=== PATIENT | female | born 1970 | race Caucasian/White ===

== ENCOUNTER 2016-11-28 16:39 | Emergency (ER) | payer OTHER ==
[2016-11-28 16:50] VITALS: RESP 17
[2016-11-28 17:49] LABS: Anion Gap 11 mmol/L; Blood Urea Nitrogen 16 mg/dL (7-17); Carbon Dioxide 22 mmol/L (22-30); Chloride 108 mmol/L (98-107); Glucose 94 mg/dL (74-99); Non-African American GFR(MDRD) >60 (>60 ml/min/1.73 sqM); Potassium 4.1 mmol/L (3.5-5.1); Sodium 141 mmol/L (137-145)
[2016-11-28 17:51] LABS: Anisocytosis Slight; Basophils % (A) 1 %; CH 18.2; CHCM 27.7; Eosinophils # (A) 0.1 k/uL (0-0.7); Eosinophils % (A) 2 %; HDW 3.97; Hypochromasia Marked; Luc # (Auto) 0.13; Luc % (Auto) 3; Lymphocytes % (A) 24 %; MCHC 27.1 g/dL (31.0-37.0); MCV 66.3 fL (80.0-100.0); Mean Platelet Volume 8.3; Microcytosis Marked; Monocytes # (A) 0.3 k/uL (0-1.0); Monocytes % (A) 7 %; Neutrophils # (A) 2.7 k/uL (1.3-7.7); Neutrophils % (A) 63 %; Poikilocytosis Slight; RBC 3.77 m/uL (3.80-5.40); RDW 18.5 % (11.5-15.5); WBC 4.3 k/uL (3.8-10.6); WBC (Perox) 4.57
[2016-11-28 17:55] LABS: HGB 6.8 gm/dL (11.4-16.0)
--- NOTE | 2016-11-28 18:23 | ED ---
General Adult HPI - General Chief complaint: Recheck/Abnormal Lab/Rx Stated complaint: Low Hemoglobin Time Seen by Provider: 11/28/16 16:54 Source: patient Mode of arrival: ambulatory Limitations: no limitations - History of Present Illness Initial comments: Patient presents with a chief complaint of abnormally low hemoglobin. She was seen by her primary care doctor today for her routine physical. She had blood work drawn and initially had a hemoglobin of 7.1. She was contacted by her primary care doctor to have her labs redrawn. The second hemoglobin resulted at 6.7, she was then instructed to present to the emergency department. On arrival, patient's vital signs are stable. Patient states that she is not having any symptoms including lightheadedness, dizziness, exertional dyspnea. Patient admits that she has had very heavy periods her entire life. She has no history of uterine fibroids. Patient states that her periods have always been very consistent, however lately they have been getting closer together. Patient denies any other complaints at this time. - Related Data Home Medications Medication Instructions Recorded Confirmed Ascorbic Acid [Vitamin C] 500 mg PO BID 11/28/16 11/28/16 Aspirin [Adult Low Dose Aspirin EC] 81 mg PO DAILY 11/28/16 11/28/16 Biotin 5 mg PO BID 11/28/16 11/28/16 Flaxseed Oil [[place]-3 Flaxseed Oil] 1,000 mg PO BID 11/28/16 11/28/16 Garlic 1 tab PO BID 11/28/16 11/28/16 Krill Oil 500 mg PO BID 11/28/16 11/28/16 L.acidoph,Paracasei, B.lactis 1 cap PO BID 11/28/16 11/28/16 [Probiotic] Magnesium 200 mg PO BID 11/28/16 11/28/16 Milk Thistle 150 mg PO DAILY 11/28/16 11/28/16 Multivitamins, Thera [Multivitamin 1 tab PO DAILY 11/28/16 11/28/16 (formulary)] valACYclovir HCL [Valtrex] 1,000 mg PO DAILY PRN 11/28/16 11/28/16 Previous Rx's Medication Instructions Recorded Norethindrone-E.estradiol-Iron 1 each PO DAILY #1 pack 11/28/16 [Junel Fe 1 mg-20 Mcg Tablet] Allergies Allergy/AdvReac Type Severity Reaction Status Date / Time Penicillins Allergy Swelling Verified 11/28/16 17:22 Review of Systems ROS Statement: Those systems with pertinent positive or pertinent negative responses have been documented in the HPI. ROS Other: All systems not noted in ROS Statement are negative. Constitutional: Denies: fever, chills Eyes: Denies: vision change ENT: Denies: ear pain, throat pain Respiratory: Denies: cough, dyspnea Cardiovascular: Denies: chest pain, palpitations, dyspnea on exertion, edema Endocrine: Reports: fatigue Gastrointestinal: Denies: abdominal pain, nausea, vomiting Genitourinary: Denies: dysuria Musculoskeletal: Denies: back pain Skin: Denies: rash, lesions Neurological: Denies: headache, weakness, numbness, paresthesias Psychiatric: Denies: depression Hematological/Lymphatic: Reports: other (Heavy Menstrual Periods) Past Medical History Additional Past Medical History / Comment(s): heavy periods, cold sores History of Any Multi-Drug Resistant Organisms: None Reported Past Psychological History: No Psychological Hx Reported Smoking Status: Never smoker Past Alcohol Use History: None Reported Past Drug Use History: None Reported General Exam Limitations: no limitations General appearance: alert, in no apparent distress Head exam: Present: atraumatic, normocephalic Eye exam: Present: normal appearance, PERRL ENT exam: Present: normal exam. Absent: mucous membranes dry Neck exam: Present: normal inspection Respiratory exam: Present: normal lung sounds bilaterally. Absent: respiratory distress, wheezes Cardiovascular Exam: Present: regular rate, normal rhythm, normal heart sounds. Absent: tachycardia, irregular rhythm GI/Abdominal exam: Present: soft. Absent: distended, tenderness Rectal exam: Present: deferred External exam: Present: other (Patient deferred pelvic exam. Patient states she is not bleeding currently.) Extremities exam: Present: normal inspection Back exam: Present: normal inspection Neurological exam: Present: alert, oriented X3, normal gait Psychiatric exam: Present: normal affect, normal mood Skin exam: Present: warm, dry, intact, pallor. Absent: rash Course Vital Signs 11/28/16 11/28/16 16:48 18:45 Temperature 99.9 F H 98.7 F Pulse Rate 87 88 Respiratory 17 Rate Blood Pressure 120/74 108/58 O2 Sat by Pulse 100 99 Oximetry Medical Decision Making - Medical Decision Making Patient presents at the request of her primary care physician for hemoglobin of 6.7. On initial evaluation, patient's vital signs are stable, she is in no acute distress. I discussed redrawing labs with the patient, she is agreeable. At this time she is declining a rectal or pelvic exam. Patient states that she is not having any chest pain, shortness of breath, exertional dyspnea, lightheadedness or dizziness. Patient further states that she is very active, and walks 3-4 miles per day with her dogs and alternates weights and yoga. She has not had any difficulty performing his activities. EKG performed at 1730 shows normal sinus rhythm with a rate of 82 bpm. Segments appear to be within normal limits, EKG is otherwise nonspecific. Lab evaluation of this patient shows a hemoglobin of 6.8, differential is consistent with chronic blood loss anemia. Electrolytes and renal function are within normal limits. I discussed this case with Dr. Ceja, who is a partner of Dr. Davis's. Dr. Fernandez states that the patient should call the office to try to expedite her appointment with Dr. Davis is Dr. Davis is out of town currently. I discussed starting control on this patient, Dr. Ceja agreeable to starting 05/10 adding the patient follow-up in the office with Dr. Davis. I discussed blood transfusion with the patient, the patient does not want to have a blood transfusion. I discussed the risks and benefits with her, patient still declining at this time. Patient appears stable, she is asymptomatic. Patient will be started on control, and instructed to follow up with primary care and [employer] ATTEND[employer]. She was given explicit instructions on signs and symptoms that should prompt return visit to the emergency department. 6:54 PM Case was discussed with the patient's primary care doctor. He is aware that the patient does not want to stay for a blood transfusion. At this time, patient is asymptomatic. Case was discussed with primary care, and [employer] ATTENDANT. Care plan includes starting the patient on 05/10, and increasing her iron supplementation to 3 times a day. All parties are agreeable with this care plan. Again patient states she is clear on signs and symptoms to return to the emergency department. - Lab Data Result diagrams: 11/28/16 17:25 11/28/16 17:25 Lab Results 11/28/16 11/28/16 Range/Units 17:25 17:25 WBC 4.3 (3.8-10.6) k/uL RBC 3.77 L (3.80-5.40) m/uL Hgb 6.8 L* (11.4-16.0) gm/dL Hct 25.0 L (34.0-46.0) % MCV 66.3 L (80.0-100.0) fL MCH 18.0 L (25.0-35.0) pg MCHC 27.1 L (31.0-37.0) g/dL RDW 18.5 H (11.5-15.5) % Plt Count 268 (150-450) k/uL Neutrophils % 63 % Lymphocytes % 24 % Monocytes % 7 % Eosinophils % 2 % Basophils % 1 % Neutrophils # 2.7 (1.3-7.7) k/uL Lymphocytes # 1.0 (1.0-4.8) k/uL Monocytes # 0.3 (0-1.0) k/uL Eosinophils # 0.1 (0-0.7) k/uL Basophils # 0.0 (0-0.2) k/uL Hypochromasia Marked Poikilocytosis Slight Anisocytosis Slight Microcytosis Marked Sodium 141 (137-145) mmol/L Potassium 4.1 (3.5-5.1) mmol/L Chloride 108 H (98-107) mmol/L Carbon Dioxide 22 (22-30) mmol/L Anion Gap 11 mmol/L BUN 16 (7-17) mg/dL Creatinine 0.68 (0.52-1.04) mg/dL Est GFR (MDRD) Af Amer >60 (>60 ml/min/1.73 sqM) Est GFR (MDRD) Non-Af >60 (>60 ml/min/1.73 sqM) Glucose 94 (74-99) mg/dL Calcium 9.0 (8.4-10.2) mg/dL Disposition Clinical Impression: Anemia, Menorrhagia Disposition: HOME SELF-CARE Condition: Fair Instructions: Anemia (ED), Menorrhagia (ED) Prescriptions: Norethindrone-E.estradiol-Iron [Junel Fe 1 mg-20 Mcg Tablet] 1 each PO DAILY #1 pack Referrals: Michael Worley MD [Primary Care Provider] - 1-2 days Ryan,Faby, DO [Doctor of Osteopathic Medicine] - 1-2 days
[2016-11-28 18:46] VITALS: BP 108/58; PULSE 88; TEMP 98.7
== END 2016-11-28 19:07 | disposition home or self-care (01) ==
LOC: EC 16:39
DX: D64.9 Anemia, unspecified (principal); N92.0 Excessive and frequent menstruation with regular cycle; Z79.82 Long term (current) use of aspirin; Z79.899 Other long term (current) drug therapy; Z88.0 Allergy status to penicillin
CPT/HCPCS: 36415; 80048; 85025; 93005; 99284

== ENCOUNTER → 2017-01-08 | Outpatient (CLI) | payer OTHER ==
--- NOTE | 2017-01-08 10:54 | US ---
EXAMINATION TYPE: US pelvic complete DATE OF EXAM: 01/08/2017 COMPARISON: NONE CLINICAL HISTORY: D25.9 Fibroid cysts. History of uterine fibroids, heavy cycles, 0 TECHNIQUE: Transabdominal (TA): patient refused transvaginal exam, stated she has had a transvaginal exam before and it was very uncomfortable and she did not want to have it done today. Date of LMP: 12/03/16 EXAM MEASUREMENTS: Uterus: 13.6 x 10.4 x 10.1 cm Endometrial Stripe: 1.8 cm Right Ovary: not seen Left Ovary: 3.1 x 2.3 x 2.5 cm 1. Uterus: enlarged at 13.6cm, bulky, heterogeneous with multiple hypoechoic areas with largest amanda uring 5.8cm, probable fibroids 2. Endometrium: thickened at 1.8cm, 2.5cm hyperechoic complex area within upper portion of endo with minimal vascularity, possible collection of blood/fluid vs. polyp vs. other 3. Right Ovary: not seen due to overlying peristalsing loops of bowel 4. Left Ovary: wnl 5. Bilateral Adnexa: wnl 6. Posterior cul-de-sac: wnl Endometrium is distorted and thus suboptimally evaluated, vague hyperechoic shadowing area of uncerta in etiology, consider dystrophic calcification. IMPRESSION: Enlarged fibroid uterus is confirmed. Suboptimal evaluation of endometrium due to underly ing prominent fibroids.
== END | disposition home or self-care (01) ==
LOC: RADUSWWP 09:48
PROVIDERS: ATTEND Obstetrics & Gynecology
DX: D25.9 Leiomyoma of uterus, unspecified (principal); N85.2 Hypertrophy of uterus
CPT/HCPCS: 76856

== ENCOUNTER 2019-06-22 16:59 | Emergency (ER) | payer OTHER ==
[2019-06-22 17:07] VITALS: RESP 16
[2019-06-22] MEDS ORDERED: RABIES VACCINE (PCEC) 2.5 UNIT KIT IM ONE (18:00)
[2019-06-22] MEDS ORDERED: RABIES IMMUNE GLOB 300 UNIT/ML 1 ML VIAL IM ONE (18:00)
[2019-06-22] MEDS ORDERED: LIDOCAINE 1% INJ 10MG/ML (20 ML MDV) SQ ONE (18:00)
--- NOTE | 2019-06-22 18:25 | XR ---
EXAMINATION TYPE: XR finger LT DATE OF EXAM: 06/22/2019 COMPARISON: NONE HISTORY: Pain. Cat bite. TECHNIQUE: 3 views FINDINGS: I see no fracture nor dislocation. Joint spaces are normal. There is no sign of a foreign b michael. IMPRESSION: Negative left middle finger exam.
[2019-06-22] MEDS ORDERED: DOXYCYCLINE 100 MG CAP PO STA (19:13)
--- NOTE | 2019-06-22 19:14 | ED ---
General Adult HPI - General Chief complaint: Animal Bite Stated complaint: Bit by cat Time Seen by Provider: 06/22/19 17:16 Source: patient, RN notes reviewed Mode of arrival: ambulatory Limitations: no limitations - History of Present Illness Initial comments: 48-year-old female presents to the emergency department for a chief complaint of cat bite. Patient was bitten by a stray cat earlier today. States the cat got into her backyard and her dogs were going to attack it if she left them out. Therefore she picked up the cat and it unfortunately bit her on the middle finger. She threw the cat over the fence. Patient states tetanus is up-to-date in the past few years.Patient has no other complaints at this time including shortness of breath, chest pain, abdominal pain, nausea or vomiting, headache, or visual changes. - Related Data Home Medications Medication Instructions Recorded Confirmed Ascorbic Acid [Vitamin C] 500 mg PO BID 11/28/16 11/28/16 Aspirin [Adult Low Dose Aspirin EC] 81 mg PO DAILY 11/28/16 11/28/16 Biotin 5 mg PO BID 11/28/16 11/28/16 Flaxseed Oil [[place]-3 Flaxseed Oil] 1,000 mg PO BID 11/28/16 11/28/16 Garlic 1 tab PO BID 11/28/16 11/28/16 Krill Oil 500 mg PO BID 11/28/16 11/28/16 L.acidoph,Paracasei, B.lactis 1 cap PO BID 11/28/16 11/28/16 [Probiotic] Magnesium 200 mg PO BID 11/28/16 11/28/16 Milk Thistle 150 mg PO DAILY 11/28/16 11/28/16 Multivitamins, Thera [Multivitamin 1 tab PO DAILY 11/28/16 11/28/16 (formulary)] valACYclovir HCL [Valtrex] 1,000 mg PO DAILY PRN 11/28/16 11/28/16 Previous Rx's Medication Instructions Recorded Norethindrone-E.estradiol-Iron 1 each PO DAILY #1 pack 11/28/16 [Junel Fe 1 mg-20 Mcg Tablet] Doxycycline [Vibramycin] 100 mg PO BID 14 Days #28 capsule 06/22/19 Allergies Allergy/AdvReac Type Severity Reaction Status Date / Time Penicillins Allergy Swelling Verified 06/22/19 17:07 Review of Systems ROS Statement: Those systems with pertinent positive or pertinent negative responses have been documented in the HPI. ROS Other: All systems not noted in ROS Statement are negative. Past Medical History Additional Past Medical History / Comment(s): heavy periods, cold sores History of Any Multi-Drug Resistant Organisms: None Reported Past Surgical History: No Surgical Hx Reported Past Psychological History: No Psychological Hx Reported Smoking Status: Never smoker Past Alcohol Use History: None Reported Past Drug Use History: None Reported General Exam Limitations: no limitations General appearance: alert, in no apparent distress Head exam: Present: atraumatic, normocephalic, normal inspection Eye exam: Present: normal appearance, PERRL, EOMI. Absent: scleral icterus, conjunctival injection, periorbital swelling ENT exam: Present: normal exam, mucous membranes moist Neck exam: Present: normal inspection. Absent: tenderness, meningismus, lymphadenopathy Respiratory exam: Present: normal lung sounds bilaterally. Absent: respiratory distress, wheezes, rales, rhonchi, stridor Cardiovascular Exam: Present: regular rate, normal rhythm, normal heart sounds. Absent: systolic murmur, diastolic murmur, rubs, gallop, clicks Extremities exam: Present: other (Patient has a small puncture wound noted to the left third digit finger pad. There is no spreading or streaking redness. No drainage. No evidence of infection at this time.) Course Vital Signs 06/22/19 06/22/19 17:03 21:45 Temperature 98.1 F 97.9 F Pulse Rate 77 82 Respiratory 16 16 Rate Blood Pressure 104/67 115/68 O2 Sat by Pulse 100 98 Oximetry Medical Decision Making - Medical Decision Making Wound is superficial. Wound was cleaned thoroughly with sterile water. X-ray of the left middle finger is negative. No sign of foreign body. Patient is already up-to-date on tetanus. Patient was started on doxycycline and given penicillin ALLERGY. Given cat was likely a stray cat patient was immunized for rabies. I discussed appropriate follow-up to continue rabies immunization and wrote prescription. I discussed high risk of infection and to return if she notices any of these symptoms.I discussed this case with attending Dr. Peterson who agrees with this assessment and treatment plan. Disposition Clinical Impression: Cat bite Disposition: HOME SELF-CARE Condition: Good Instructions (If sedation given, give patient instructions): Animal Bite (ED) Additional Instructions: Please take antibiotic as directed. This was prescribed to Renuka Laresn. Follow rabies vaccination schedule. Return to the hospital to have these immunizations on June 24, , , and . Please follow-up with primary care in 1-2 days. If you notice any signs of infection like spreading redness streaking redness purulent drainage or fevers return immediately to the emergency department. Prescriptions: Doxycycline [Vibramycin] 100 mg PO BID 14 Days #28 capsule Is patient prescribed a controlled substance at d/c from ED?: No Referrals: Michael Worley MD [Primary Care Provider] - 1-2 days Time of Disposition: 19:13
[2019-06-22 21:46] VITALS: BP 115/68; PULSE 82; TEMP 97.9
== END 2019-06-22 19:35 | disposition home or self-care (01) ==
LOC: EC 16:59
DX: S60.473A Other superficial bite of left middle finger, initial encounter (principal); Z88.0 Allergy status to penicillin; Z79.82 Long term (current) use of aspirin; Z20.3 Contact with and (suspected) exposure to rabies; Z23 Encounter for immunization; Z29.14 Encounter for prophylactic rabies immune globulin; W55.01XA Bitten by cat, initial encounter; Y93.89 Activity, other specified; Y92.017 Garden or yard in single-family (private) house as the place of occurrence of the external cause; Z53.8 Procedure and treatment not carried out for other reasons
CPT/HCPCS: 90375; 90471; 90675; 96372; 99283

== ENCOUNTER → 2021-08-17 | Outpatient (CLI) | payer OTHER ==
--- NOTE | 2021-08-17 12:07 | MM ---
Reason for exam: clinical finding. Baseline mammogram. History: Patient is nulliparous. Indicated problem(s): palpable abnormality in the left breast. Physical Findings: A clinical breast exam by your physician is recommended on an annual basis and results should be correlated with mammographic findings. MG 3D Diag Mammo W/Cad JULIANNE Bilateral CC and MLO view(s) were taken. LM and spot compression CC view(s) were taken of the left breast. The breast tissue is extremely dense which could obscure a lesion on mammography. Finding: There are 35 mm spiculated irregular masses located 3-4 cm from the nipple in the middle position of both breasts with suspicious calcifications. There is no discrete abnormality in the right breast. Results were given to the patient verbally at the time of the exam. ASSESSMENT: Incomplete: need additional imaging evaluation, BI-RAD 0 RECOMMENDATION: Ultrasound of both breasts.
--- NOTE | 2021-08-17 12:11 | USB ---
Reason for exam: clinical finding. History: Patient is nulliparous. Physical Findings: A clinical breast exam by your physician is recommended on an annual basis and results should be correlated with mammographic findings. US Breast BILAT Right complete breast ultrasound includes all four quadrants, the retroareolar region and axilla. Finding demonstrates no cystic or solid lesion greater than 0.5cm. Left complete breast ultrasound includes all four quadrants, the retroareolar region and axilla. Finding demonstrates a 2.4 x 1.2 x 1.6cm irregular, spiculated, solid, hypoechoic lesion at 10 o'clock with distortion, abuts anterior pectoralis muscle. Benign lymph nodes left axilla. Results were given to the patient verbally at the time of the exam. ASSESSMENT: Highly suggestive of malignancy, BI-RAD 5 RECOMMENDATION: Ultrasound core biopsy of the left breast. Called office with mammographic findings and has scheduled an appointment for the patient for 08/17/21 at 12:[address] Hoffman. Biopsy scheduled for 08/24/21 at 7:45. PRELIMINARY REPORT CALLED AND FAXED TO DR. HOFFMAN ON 08/17/21.
== END | disposition home or self-care (01) ==
LOC: RADUSWWP 09:22
PROVIDERS: ATTEND Obstetrics & Gynecology
DX: N63.0 Unspecified lump in unspecified breast (principal)
CPT/HCPCS: 77062; 77066

== ENCOUNTER → 2021-08-17 | Outpatient (CLI) | payer OTHER ==
[2021-08-17 11:28] VITALS: BP 135/76; PULSE 74; RESP 18; TEMP 98.1
--- NOTE | 2021-08-17 12:18 | P.GSHP ---
History of Present Illness H&P Date: 08/17/21 Chief Complaint: abnormal mammogram of the left breast The patient is a 50 year old white female seen in consultation for Dr Davis regarding a lump in her left breast earlier this week. She is uncertain as to how long it has been present. She is still uncertain that she can feel this. She had a bilateral mammogram on 08-17-21 revealing an area of concern in the left breast. This is her first mammogram. She has never had any surgery on her breast. She is not complaining of any breast pain, no abnormal nipple discharge, no complaints of any trauma or infection in the breast. The patient did 23 and me genetic testing and it was negative. This was about 5 years ago. Caffeine: none nicotine: none chocolate: several times a week BCP: 25 years ago for 15 years hormones: none Family History: maternal grandfather: lung cancer Hormonal History: menarche: 8 G0 menopause: she was having a consult for a hysterectomy regarding heavy bleeding, LMP: 10 days ago BCP use for 15 eyars stopped 25 years ago Sugical History: none Medical History: anemia; HgB 8.8 on Friday checked yearly she did hte cologuard 2 years ago, she has not had a colonoscopy Social history: Nicotine: Negative Alcohol: Negative Drugs: Negative - Constitutional Constitutional: Reports sweats - EENT Eyes: denies blurred vision, denies pain Ears: deny: decreased hearing, tinnitus Ears, nose, mouth and throat: Denies headache, Denies sore throat - Breasts Breasts: bilateral: as per HPI - Cardiovascular Cardiovascular: Denies chest pain, Denies shortness of breath - Respiratory Respiratory: Denies cough, Denies 7 - Gastrointestinal Gastrointestinal: Denies abdominal pain, Denies diarrhea, Denies nausea, Denies vomiting - Genitourinary (Female) Genitourinary: Denies dysuria, Denies hematuria - Menstruation Menstruation: Reports as per HPI - Musculoskeletal Musculoskeletal: Denies myalgias - Integumentary Integumentary: Denies pruritus, Denies rash - Neurological Neurological: Denies numbness, Denies weakness - Psychiatric Psychiatric: Denies anxiety, Denies depression - Endocrine Endocrine: Reports fatigue, Denies weight change - Hematologic/Lymphatic Comment: anemia related to heavy periods Hematologic/Lymphatic: Reports as per HPI - Allergic/Immunologic Allergic/Immunologic: Reports as per HPI Past Medical History Additional Past Medical History / Comment(s): heavy periods, cold sores History of Any Multi-Drug Resistant Organisms: None Reported Past Surgical History: No Surgical Hx Reported Past Psychological History: No Psychological Hx Reported Smoking Status: Never smoker Past Alcohol Use History: None Reported Past Drug Use History: None Reported Medications and Allergies Home Medications Medication Instructions Recorded Confirmed Type Ascorbic Acid [Vitamin C] 500 mg PO BID 11/28/16 08/17/21 History Biotin 5 mg PO BID 11/28/16 08/17/21 History Garlic 1 tab PO BID 11/28/16 08/17/21 History Krill Oil 500 mg PO BID 11/28/16 08/17/21 History L.acidoph,Paracasei, B.lactis 1 cap PO BID 11/28/16 08/17/21 History [Probiotic] Magnesium 200 mg PO BID 11/28/16 08/17/21 History Milk Thistle 150 mg PO DAILY 11/28/16 08/17/21 History Multivitamins, Thera [Multivitamin 1 tab PO DAILY 11/28/16 08/17/21 History (formulary)] flaxseed oiL [[place]-3 Flaxseed Oil] 1,000 mg PO BID 11/28/16 08/17/21 History valACYclovir HCL [Valtrex] 1,000 mg PO DAILY PRN 11/28/16 08/17/21 History Allergies Allergy/AdvReac Type Severity Reaction Status Date / Time Penicillins Allergy Swelling Verified 08/17/21 11:21 Surgical - Exam Vital Signs Temp Pulse Resp BP Pulse Ox 98.1 F 74 18 135/76 100 08/17/21 11:23 08/17/21 11:23 08/17/21 11:23 08/17/21 11:23 08/17/21 11:23 BMI: 22.1 - General moderate distress - Eyes normal ocular movement - Neck trachea midline - Respiratory normal respiratory effort - Cardiovascular Rhythm: regular Heart Sounds: normal: S1, S2 - Abdomen Abdomen: soft - Integumentary normal turgor - Neurologic no disoriented, no combative - Musculoskeletal normal gait, normal posture - Psychiatric oriented to time, oriented to person, oriented to place, speech is normal, memory intact Breast Exam: BRA: 34B inspection: The lateral grade 2 ptosis Palpation: Right breast: Multiple positional exam fibrocystic changes no dominant masses or nodules of concern Right axilla: No adenopathy of concern, shoddy adenopathy noted Left breast: Multiple positional exam form us at the 12:00 region without a discrete dominant mass Left axilla: No adenopathy of concern Results mammogram reviewed with Dr. Crocker, lesion in the left breast Assessment and Plan Assessment: Impression: Abnormal left breast mammogram Fibrocystic breast changes Plan: Ultrasound core biopsy left breast Follow up after ultrasound core biopsy Risks and benefits of core biopsy discussed with the patient. She understands and this is scheduled for next week. Cc: Dr. Davis,
== END ==
LOC: WWCWWP 11:15
PROVIDERS: ATTEND Surgery
DX: R92.8 Other abnormal and inconclusive findings on diagnostic imaging of breast (principal); N60.11 Diffuse cystic mastopathy of right breast; Z88.0 Allergy status to penicillin

== ENCOUNTER → 2021-08-24 | Day surgery (SDC) | payer OTHER ==
--- NOTE | 2021-08-24 09:08 | USB ---
EXAMINATION TYPE: US biopsy breast VAD LT DATE OF EXAM: 08/24/2021 CLINICAL HISTORY: R92.8 abnormal mammogram. TECHNIQUE: Ultrasound guided core biopsy of left breast. COMPARISON: NONE FINDINGS: The procedure of ultrasound guided core biopsy was explained to the patient. Benefits, alternatives, and risks were discussed. An informed consent was then obtained. The patient was placed in supine positioning for imaging and for the procedure. The overlying skin was prepped and draped in usual sterile fashion. Lidocaine buffered with bicarbonate was used as anesthetic into the skin and subcutaneous tissue up to area of concern in the left breast. A leeann was made with surgical scalpel. Under ultrasound guidance, a 12-gauge vacuum assisted biopsy gun device was used to obtain 4 core samples. Following this, a biopsy clip was left in lesion. The patient tolerated the procedure well without any immediate complication. The patient was kept in the radiology department for short stay after the procedure and then discharged home in stable condition. IMPRESSION: Successful, uncomplicated ultrasound guided core biopsy of area of concern in the left breast, full pathology results to follow. Pathology Results: Malignant LEFT BREAST, 10:00, ULTRASOUND GUIDED CORE BIOPSY: Invasive moderately differentiated ductal carcinoma (Grade 2). See Surgical Pathology Cancer Case Summary and Comment. Recommendation Surgical consult of the left breast. KAREN
--- NOTE | 2021-08-30 10:03 | MM ---
Reason for exam: additional evaluation requested from abnormal screening. Last mammogram was performed less than 1 month ago. History: Patient is nulliparous. MG Diagnostic Mammo LT Wo CAD CC and MLO view(s) were taken of the left breast. Prior study comparison: August 17, 2021, bilateral MG 3d diag mammo w/cad JULIANNE. ASSESSMENT: Post procedure mammogram for marker placement RECOMMENDATION: Surgical consultation of the left breast. KAREN
== END ==
LOC: RADUSWWP 07:33
PROVIDERS: ATTEND Surgery
DX: C50.212 Malignant neoplasm of upper-inner quadrant of left female breast (principal)
CPT/HCPCS: 19083; 88305; 88342; 88341; 77065; A4648

== ENCOUNTER → 2021-08-30 | Outpatient (CLI) | payer OTHER ==
[2021-08-30 09:19] VITALS: BP 120/72; PULSE 62; RESP 17; TEMP 97.7
--- NOTE | 2021-08-30 10:07 | P.PN ---
Subjective Progress Note Date: 08/30/21 Principal diagnosis: stage IB invasive left breast cancer Vanessa is a 50-year-old white female status post left breast ultrasound core biopsy on 5621. Pathology revealed an invasive ductal carcinoma. Positive HER-2 negative grade 2. The lesion is believed to be 2.4 cm in size on ultrasound. She tolerated the biopsy without difficulty. Objective - Vital Signs Vital signs: Vital Signs Temp 97.7 F 08/30/21 09:16 Pulse 62 08/30/21 09:16 Resp 17 08/30/21 09:16 BP 120/72 08/30/21 09:16 Pulse Ox 100 08/30/21 09:16 Intake & Output 08/29/21 08/30/21 08/30/21 18:59 06:59 18:59 Weight 57.606 kg - Constitutional General appearance: Present: cooperative - EENT Eyes: Present: EOMI ENT: Present: hearing grossly normal - Neck Neck: Present: normal ROM - Cardiovascular Rhythm: regular Heart sounds: normal: S1, S2 - Integumentary Integumentary Comment(s): Mild ecchymosis at biopsy site - Musculoskeletal Musculoskeletal: Present: gait normal - Psychiatric Psychiatric: Present: A&O x's 3, appropriate affect, intact judgment & insight Assessment and Plan Assessment: Impression: Stage IB left breast invasive ductal carcinoma ER/OR positive HER-2/herbert negative G2 T2 N0 M0 Plan: Presentation of case at tumor board Genetic testing Oncotype DX Appointment with medical oncology Appointment with Dr. Ortiz plastic surgery follow up after tumor board Risks and benefits of surgical intervention were discussed with the patient. The patient was given the option of mastectomy plus or minus reconstruction versus lumpectomy plus radiation therapy. Risks include but are not limited to bleeding, infection, reaction to the anesthetic. Additionally if the patient were to have a lumpectomy margins were positive additional resection would be needed. Additional discussion was had regarding sentinel node biopsy and axillary node dissection. Risks include but are not limited to bleeding, infection, reaction to the anesthetic. Additionally numbness to the inner arm, injury to the thoracodorsal or long thoracic nerve resulting in wing scapula, and lymphedema were discussed. If methylene blue to be used as a brisk of tattooing of the skin and/or necrosis. The patient understands all of these and we are waiting presentation of her case at tumor board for definitive treatment planning. Time spent 60 minutes in reviewing pathology results and treatment options. Cc: Dr. Davis, Dr. Worley
== END ==
LOC: WWCWWP 09:03
PROVIDERS: ATTEND Surgery
DX: C50.912 Malignant neoplasm of unspecified site of left female breast (principal); Z17.0 Estrogen receptor positive status [ER+]; Z88.0 Allergy status to penicillin

== ENCOUNTER → 2021-10-19 | Outpatient (CLI) | payer OTHER ==
[2021-10-19 14:41] VITALS: BP 123/70; PULSE 79; RESP 18; TEMP 98.3
--- NOTE | 2021-10-19 15:04 | P.PN ---
Subjective Progress Note Date: 10/19/21 Principal diagnosis: Stage I B left breast invasive ductal carcinoma The patient is a 50 year old white female seen in consultation for Dr Davis regarding a lump in her left breast earlier this week. She is uncertain as to how long it has been present. She is still uncertain that she can feel this. She had a bilateral mammogram on 08-17-21 revealing an area of concern in the left breast. This is her first mammogram. She has never had any surgery on her breast. She is not complaining of any breast pain, no abnormal nipple discharge, no complaints of any trauma or infection in the breast. She underwent an ultrasound core biopsy of the area of concern on 5621 which revealed an invasive differentiated ductal carcinoma grade 2 this was ER/NJ positive and HER-2/herbert negative. Her case was presented at tumor board she underwent a genetic testing which was negative and an Oncotype evaluation with a recurrent score of 15. It was felt that neoadjuvant therapy was not necessary and she is scheduled for a lumpectomy with sentinel node biopsy possible axillary node dissection. Caffeine: none nicotine: none chocolate: several times a week BCP: 25 years ago for 15 years hormones: none Family History: maternal grandfather: lung cancer Hormonal History: menarche: 8 G0 menopause: she was having a consult for a hysterectomy regarding heavy bleeding, LMP: 10 days ago BCP use for 15 eyars stopped 25 years ago Sugical History: none Medical History: anemia; HgB 8.8 on Friday checked yearly she did hte cologuard 2 years ago, she has not had a colonoscopy Social history: Nicotine: Negative Alcohol: Negative Drugs: Negative - Constitutional Constitutional: Reports sweats - EENT Eyes: denies blurred vision, denies pain Ears: deny: decreased hearing, tinnitus Ears, nose, mouth and throat: Denies headache, Denies sore throat - Breasts Breasts: bilateral: as per HPI - Cardiovascular Cardiovascular: Denies chest pain, Denies shortness of breath - Respiratory Respiratory: Denies cough - Gastrointestinal Gastrointestinal: Denies abdominal pain, Denies diarrhea, Denies nausea, Denies vomiting - Genitourinary (Female) Genitourinary: Denies dysuria, Denies hematuria - Menstruation Menstruation: Reports as per HPI - Musculoskeletal Musculoskeletal: Denies myalgias - Integumentary Integumentary: Denies pruritus, Denies rash - Neurological Neurological: Denies numbness, Denies weakness - Psychiatric Psychiatric: Denies anxiety, Denies depression - Endocrine Endocrine: Reports fatigue, Denies weight change - Hematologic/Lymphatic Comment: anemia related to heavy periods Hematologic/Lymphatic: Reports as per HPI - Allergic/Immunologic Allergic/Immunologic: Reports as per HPI Objective - Vital Signs Vital signs: Vital Signs Temp 98.3 F 10/19/21 14:39 Pulse 79 10/19/21 14:39 Resp 18 10/19/21 14:39 BP 123/70 10/19/21 14:39 Pulse Ox 100 10/19/21 14:39 FiO2 Intake & Output 10/18/21 10/19/21 10/19/21 18:59 06:59 18:59 Weight 56.699 kg - Exam BMI: 22.1 - Constitutional General appearance: Present: cooperative - EENT Eyes: Present: EOMI ENT: Present: hearing grossly normal - Neck Neck: Present: normal ROM - Respiratory Respiratory: bilateral: CTA - Cardiovascular Rhythm: regular Heart sounds: normal: S1, S2 - Integumentary Integumentary: Present: normal turgor - Musculoskeletal Musculoskeletal: Present: gait normal - Psychiatric Psychiatric: Present: A&O x's 3, appropriate affect, intact judgment & insight - Additional findings Additional findings: Breast examination: Block: 30 4B Inspection: Bilateral grade 2 ptosis Palpation: Right breast: Multi-positional exam fibrocystic changes no dominant masses or nodules of concern Right axilla: No adenopathy of concern Left breast: Multi-positional exam in the 12:00 region there is some fullness without a distinct dominant mass Left axilla: No adenopathy of concern Assessment and Plan Assessment: Impression: Stage IB left breast invasive ductal carcinoma T2N0M0 G2 ER/NJ positive HER- 2/herbert negative Note from Dr. Lujan [place] [id number]; at that time genetic testing and Oncotype recommended Genetic testing did not reveal any deleterious jeans, and Oncotype score was 15 Plan: Left breast needle localization lumpectomy, possible onco-plastic tissue transfer, left sentinel node injection, possible left axillary node dissection Risk and benefits of the procedure discussed with the patient and her . Risks include but are not limited to bleeding, infection, reaction to the anesthetic. The risk of a positive margin is discussed which could necessitate removing more tissue. Additionally with the sentinel node possible axillary node dissection risk also include numbness to the inner arm, swelling of the arm, and possible winged scapula. CC: Dr. Worley, Dr Davis
== END ==
LOC: WWCWWP 14:33
PROVIDERS: ATTEND Surgery
DX: C50.912 Malignant neoplasm of unspecified site of left female breast (principal); Z17.0 Estrogen receptor positive status [ER+]; Z88.0 Allergy status to penicillin

== ENCOUNTER 2021-10-30 07:02 | Day surgery (SDC) | payer OTHER ==
[2021-10-25 11:25] VITALS: BMI 22.4
[~2021-10-30 07:02] MED LIST: DEXAMETHASONE SOD PHOSPHATE 4 MG/ML 1 ML VIAL IV ONE; HEPARIN SODIUM,PORCINE/PF 5,000 UNIT/0.5 ML SYRINGE SQ PRN; HYDROmorphone 0.5 MG/0.5 ML SYRINGE IVP PRN; LIDOCAINE 1% (10MG/ML) FOR IV START INTRADERMA PRN; METOCLOPRAMIDE 5 MG/ML 2 ML VIAL IVP PRN; ONDANSETRON 4 MG/2 ML VIAL IVP ONE; Pre Op ABX Message 1 EACH MISC MISCELLANE ONE; SCOPOLAMINE 1 MG/72 HR PATCH TRANSDERM ONE
[2021-10-30] MEDS: LACTATED RINGERS 1,000 ML IV SCH (08:11)
[2021-10-30] MEDS ORDERED: LIDOCAINE 1% INJ 10MG/ML (20 ML MDV) SQ ONE (08:38)
[2021-10-30] MEDS ORDERED: CLINDAMYCIN 600 MG in DEXTROSE 5% IN WATER 50 ML IVPB STA ×2 (10:57)
[2021-10-30 11:21] LABS: Anisocytosis Slight; Basophils % (A) 1 %; Eosinophils % (A) 0 %; HCT 24.4 % (34.0-46.0); Hypochromasia Marked; Lymphocytes # (A) 0.4 k/uL (1.0-4.8); Lymphocytes % (A) 10 %; MCH 21.8 pg (25.0-35.0); MCV 80.9 fL (80.0-100.0); Mean Platelet Volume 7.9; Monocytes # (A) 0.1 k/uL (0-1.0); Monocytes % (A) 2 %; Neutrophils # (A) 3.5 k/uL (1.3-7.7); Neutrophils % (A) 86 %; Platelet Count 301 k/uL (150-450); Poikilocytosis Slight; RBC 3.01 m/uL (3.80-5.40); RDW 16.4 % (11.5-15.5); WBC 4.1 k/uL (3.8-10.6)
[2021-10-30 11:24] LABS: HGB 6.6 gm/dL (11.4-16.0)
--- NOTE | 2021-10-30 11:31 | NM ---
EXAMINATION TYPE: NM sentinel node injection DATE OF EXAM: 10/30/2021 COMPARISON: NONE HISTORY: Breast cancer TECHNIQUE AND FINDINGS: The procedure of sentinel lymph node injection was explained to the patient. The benefits, alternatives, and risks were discussed. An informed consent was then obtained. Overlying skin is cleaned with sterile alcohol. Following this, 469 uCi Tc99m Tilmanocept was inject ed in the upper outer aspect of the left nipple intradermally. The patient tolerated the procedure well without any immediate complication. The patient was kept in the radiology department for short stay after the procedure and then taken to surgery for surgical p rocedure what is presumed intraoperative gamma probe will be used for sentinel lymph node detection. IMPRESSION: Left breast radiotracer injection for sentinel node localization as above.
[2021-10-30] MEDS ORDERED: PROPOFOL 10 MG/ML 20 ML VIAL IV ONE (16:00)
[2021-10-30] MEDS ORDERED: LIDOCAINE 2% INJ 20 MG/ML (2 ML VIAL) ONE (16:00)
[2021-10-30] MEDS ORDERED: fentaNYL (PF) 50 MCG/ML 2 ML AMP ONE (16:00)
[2021-10-30] MEDS ORDERED: MIDAZOLAM 2 MG/2 ML VIAL ONE (16:00)
[2021-10-30] MEDS ORDERED: KETAMINE 10 MG/ML 20 ML VIAL ONE (16:00)
[2021-10-30] MEDS ORDERED: SUCCINYLCHOLINE CHLORIDE 100 MG/5 ML SYR IV ONE (16:00)
[2021-10-30] MEDS ORDERED: HYDROmorphone 1 MG/ML 1 ML SYRINGE IVP PRN (17:49)
[2021-10-30] MEDS ORDERED: HYDROcodone/APAP 5-325MG 1 EACH TAB PO PRN (17:49)
[2021-10-30] MEDS ORDERED: ONDANSETRON 4 MG/2 ML VIAL IVP PRN (17:49)
[2021-10-30] MEDS ORDERED: NALOXONE 0.4 MG/ML 1 ML VIAL IV PRN (17:49)
--- NOTE | 2021-10-30 17:49 | P.OP ---
Date of Procedure: 10/30/21 Preoperative Diagnosis: Left breast invasive ductal carcinoma Postoperative Diagnosis: Same Procedure(s) Performed: Left breast sentinel node biopsy, left breast needle localization partial mastectomy with onco- plastic tissue transfer 56 cm Anesthesia: WESLY Surgeon: Susie Hoffman Estimated Blood Loss (ml): 10 IV fluids (ml): 300 Pathology: other ([place] lymph node, axillary contents, breast lumpectomy) Condition: stable Disposition: floor Indications for Procedure: Biopsy-proven left breast invasive ductal carcinoma Operative Findings: Very dense breast tissue Description of Procedure: The patient is a 50-year-old white female who underwent a core biopsy of the lesion of concern in the left breast. Pathology revealed an invasive ductal carcinoma. She opted for a lumpectomy and sentinel node biopsy. The patient was seen in the radiology department and the radiotracer was injected in the periareolar region. The localization of the area of concern in the left breast was performed. The patient was brought to the operative suite. In the preoperative area and was noted that her hemoglobin was 6.6 and prior to taking the patient to the operating room she was given 1 unit of packed red blood cells. In the operative suite following induction of anesthesia the axilla was interrogated. There was radioactivity noted to be in the axilla. The left breast and axilla were prepped and draped in a sterile fashion. The axilla was approached initially. Using the guidance of the neoprobe incision was made in the axilla. This was carried down through the skin and subcutaneous tissue to the axillary tissue. The lymph node with highest radioactivity was deep in the axilla between the area of the thoracodorsal and long thoracic nerves. This was identified and removed. The 10 second count was 8123. There was some additional axillary tissue and palpable adenopathy in this area which was removed as well. The 10 second count and the background axilla was 1. After assured that hemostasis was attained the subcutaneous tissues were closed using 3-0 Vicryl suture. The skin was closed using 4-0 Monocryl. The area of the breast was then approached. A curvilinear incision in the superior breast was made near the area of the tumor. The breast tissue was very dense. Dissection was performed around the shaft of the needle and the lesion was removed. After assured that hemostasis was attained superior and inferior pedicles were formed to close the defect. The defect was 4 x 4 centimeters. The superior pillar was 5 x 4 cm and the inferior pillar was 5 x 4 cm. Total tissue transfer was 56 cm. Titanium clips were placed into the defect. Posteriorly dissection was performed down to the pectoralis muscle. Anteriorly skin was removed. Additional medial tissue was taken for additional margin. It was felt that superior inferior and lateral margins were clear grossly. The defect was closed using 3-0 Vicryl suture bringing the superior and inferior pillars together. Subcutaneous tissue was closed using 3-0 Vicryl suture. The skin was closed using 4-0 Monocryl. The specimen was painted for orientation. Radiograph of the specimen revealed the area of concern about removed. All instrument and sponge counts were correct at the end of the case. The patient tolerated the procedure in stable condition.
[2021-10-30] MEDS ORDERED: DEXTROSE 5%-0.45% NACL 1,000 ML IV SCH (18:00)
[2021-10-30 18:28] LABS: Anisocytosis Slight; Basophils % (A) 0 %; Eosinophils % (A) 0 %; HCT 26.1 % (34.0-46.0); HGB 7.4 gm/dL (11.4-16.0); Hypochromasia Marked; Lymphocytes # (A) 0.4 k/uL (1.0-4.8); Lymphocytes % (A) 14 %; MCH 23.3 pg (25.0-35.0); MCHC 28.6 g/dL (31.0-37.0); MCV 81.6 fL (80.0-100.0); Mean Platelet Volume 9.2; Monocytes # (A) 0.1 k/uL (0-1.0); Monocytes % (A) 3 %; Neutrophils # (A) 2.5 k/uL (1.3-7.7); Neutrophils % (A) 81 %; Platelet Count 277 k/uL (150-450); Poikilocytosis Marked; RBC 3.19 m/uL (3.80-5.40); RDW 16.1 % (11.5-15.5); WBC 3.1 k/uL (3.8-10.6)
[2021-10-30] MEDS ORDERED: LACTATED RINGERS 1,000 ML IV ONE (18:32)
[2021-10-30 18:36] VITALS: RESP 18
[2021-10-30] MEDS ORDERED: ONDANSETRON 4 MG/2 ML VIAL IVP ONE (18:39)
[2021-10-30] MEDS ORDERED: HYDROmorphone 1 MG/ML 1 ML SYRINGE IVP ONE (18:45)
[2021-10-30] MEDS: HEPARIN SODIUM,PORCINE/PF 5,000 UNIT/0.5 ML SYRINGE SQ SCH (21:32)
[2021-10-31] MEDS: LACTATED RINGERS 1,000 ML IV SCH (00:46)
[2021-10-31 05:27] VITALS: TEMP 97.9
[2021-10-31] MEDS: HEPARIN SODIUM,PORCINE/PF 5,000 UNIT/0.5 ML SYRINGE SQ SCH (07:25)
[2021-10-31 08:24] VITALS: BP 128/70; PULSE 76
--- NOTE | 2021-10-31 10:19 | P.PN ---
Subjective Progress Note Date: 10/31/21 Principal diagnosis: Left breast lumpectomy and sentinel node biopsy The patient is a 50-year-old white female postop day #1 left breast lumpectomy and sentinel node biopsy. Of concern is the fact that preoperatively she was noted to have a hemoglobin of 6.6 and was given 1 unit of packed red blood cells. The blood loss at the time of surgery was minimal and her initial post operative hemoglobin was 7.4. The patient is asymptomatic and feeling well at this time. She has done well postoperatively. Objective - Vital Signs Vital signs: Vital Signs Temp 97.9 F 10/31/21 05:26 Pulse 76 10/31/21 08:35 Resp 18 10/31/21 08:35 BP 128/70 10/31/21 08:00 Pulse Ox 100 10/31/21 05:26 FiO2 Intake & Output 10/30/21 10/31/21 10/31/21 18:59 06:59 18:59 Intake Total 2164 740 Output Total 10 Balance 2154 740 Weight 56.6 kg Intake: IV 1854 Oral 740 Blood Product 310 Rc As-1 Unit 310 [id number] Output: Estimated Blood Loss 10 Other: Voiding Method Toilet Toilet # Voids 3 - Constitutional General appearance: Present: cooperative - EENT Eyes: Present: EOMI ENT: Present: hearing grossly normal - Neck Neck: Present: normal ROM - Respiratory Respiratory: bilateral: CTA - Cardiovascular Rhythm: regular Heart sounds: normal: S1, S2 - Integumentary Integumentary Comment(s): Incisions clean and dry; no evidence of hematoma or infection - Psychiatric Psychiatric: Present: A&O x's 3, appropriate affect, intact judgment & insight - Labs CBC & Chem 7: 10/30/21 18:16 Labs: Abnormal Lab Results - Last 24 Hours (Table) 10/30/21 10/30/21 10/30/21 Range/Units 11:13 11:32 18:16 WBC 3.1 L (3.8-10.6) k/uL RBC 3.01 L 3.19 L (3.80-5.40) m/uL Hgb 6.6 L* 7.4 L (11.4-16.0) gm/dL Hct 24.4 L 26.1 L (34.0-46.0) % MCH 21.8 L 23.3 L (25.0-35.0) pg MCHC 27.0 L 28.6 L (31.0-37.0) g/dL RDW 16.4 H 16.1 H (11.5-15.5) % Lymphocytes # 0.4 L 0.4 L (1.0-4.8) k/uL Crossmatch See Detail Assessment and Plan Assessment: Impression: Patient doing well postoperatively Plan: Await repeat CBC if this is stable plan for discharge
--- NOTE | 2021-10-31 10:23 | P.DS ---
Providers Date of admission: 10-30-21 Expected date of discharge: 10/31/21 Attending physician: Susie Hoffman Primary care physician: Michael Worley [facility] Course: The patient is a 50-year-old white female with a biopsy-proven left breast invasive ductal carcinoma. Of concern is the fact that preoperatively she was noted to have a hemoglobin of 6.6. She was given 1 unit of packed red blood cells and her hemoglobin increased to 7.4 postoperatively. She has no evidence of any active bleeding. The anemia is chronic in nature. Postoperatively she has done well. Procedures: Left breast lumpectomy and sentinel node biopsy Plan - Discharge Summary Discharge Rx Participant: No New Discharge Prescriptions: No Action Multivitamins, Thera [Multivitamin (formulary)] 1 tab PO DAILY Ascorbic Acid [Vitamin C] 500 mg PO BID Milk Thistle 150 mg PO DAILY Magnesium 200 mg PO BID L.acidoph,Paracasei, B.lactis [Probiotic] 1 cap PO BID Krill Oil 500 mg PO BID flaxseed oiL [Kinder-3 Flaxseed Oil] 1,000 mg PO BID Garlic 1 tab PO BID valACYclovir HCL [Valtrex] 1,000 mg PO DAILY PRN PRN Reason: Cold Sores Biotin 5 mg PO BID Ferrous Sulfate [Feosol] 325 mg PO DAILY Discharge Medication List Ascorbic Acid [Vitamin C] 500 mg PO BID 11/28/16 [History] Biotin 5 mg PO BID 11/28/16 [History] Garlic 1 tab PO BID 11/28/16 [History] Krill Oil 500 mg PO BID 11/28/16 [History] L.acidoph,Paracasei, B.lactis [Probiotic] 1 cap PO BID 11/28/16 [History] Magnesium 200 mg PO BID 11/28/16 [History] Milk Thistle 150 mg PO DAILY 11/28/16 [History] Multivitamins, Thera [Multivitamin (formulary)] 1 tab PO DAILY 11/28/16 [History] flaxseed oiL [Kinder-3 Flaxseed Oil] 1,000 mg PO BID 11/28/16 [History] valACYclovir HCL [Valtrex] 1,000 mg PO DAILY PRN 11/28/16 [History] Ferrous Sulfate [Feosol] 325 mg PO DAILY 10/25/21 [History] Follow up Appointment(s)/Referral(s): Susie Hoffman MD [STAFF PHYSICIAN] - 11/08/21 12:20 pm Michael Worley MD [Primary Care Provider] - 1 Week Faby Davis DO [Doctor of Osteopathic Medicine] - 1 Week Activity/Diet/Wound Care/Special Instructions: Wear bra at all times Do not drive until seen by Dr. Zacarias May shower after 48 hours Discharge Disposition: HOME SELF-CARE
[2021-10-31 10:41] LABS: Basophils # (A) 0.03 X 10*3/uL (0.00-0.10); Basophils % (A) 0.5 %; Eosinophils # (A) 0 X 10*3/uL (0.04-0.35); Eosinophils % (A) 0 %; HCT 25.8 % (37.2-46.3); HGB 7.2 g/dL (12.0-15.0); Immature Grans, Automated 0.3 %; Lymphocytes # (A) 0.49 X 10*3/uL (0.90-5.00); Lymphocytes % (A) 7.8 %; MCH 22.1 pg (27.0-32.0); MCHC 27.9 g/dL (32.0-37.0); MCV 79.1 fL (80.0-97.0); Mean Platelet Volume 12.2 fL (9.5-12.2); Monocytes # (A) 0.54 X 10*3/uL (0.20-1.00); Monocytes % (A) 8.6 %; NRBC Per 100 WBC 0 /100 WBCS (0.0-0.0); Neutrophils # (A) 5.23 X 10*3/uL (1.80-7.70); Neutrophils % (A) 82.8 %; Platelet Count 313 X 10*3/uL (140-440); RBC 3.26 X 10*6/uL (4.10-5.20); RDW 15.6 % (11.5-14.5); WBC 6.31 X 10*3/uL (4.50-10.00)
== END 2021-10-31 11:16 | disposition home or self-care (01) ==
LOC: OR 07:02 → 5NMEDONC 18:39 → OR 10-31 11:16
PROVIDERS: ATTEND Surgery
DX: C50.212 Malignant neoplasm of upper-inner quadrant of left female breast (principal); R59.0 Localized enlarged lymph nodes; Z17.0 Estrogen receptor positive status [ER+]; Z88.0 Allergy status to penicillin; Z80.1 Family history of malignant neoplasm of trachea, bronchus and lung; Z79.899 Other long term (current) drug therapy
CPT/HCPCS: 81025; 86900; 86901; 85025 ×2; 86850; 86920; 76098; 19285; 38792; 38525; 19301; 14301; P9016; C1819; A9520; J2250; J1100; J2405; J2001 ×2; J3010; J1170; J0330; J2704; J1644 ×2; 88307; 88341; 88342

== ENCOUNTER → 2021-11-08 | Outpatient (CLI) | payer OTHER ==
--- NOTE | 2021-11-08 08:35 | MM ---
Reason for Exam: Post Procedure Mammogram. Last screening mammogram was performed 3 month(s) ago. Patient History: Menarche at age 8. Patient has no children. Breast cancer, age 50. 08/24/2021, Malignant Core Biopsy on the left side. Prior Study Comparison: 08/17/2021 Bilateral Diagnostic Mammogram, [facility]. 08/24/2021 Left Diagnostic Mammogram, [facility]. Tissue Density: Left: The breast tissue is extremely dense which could obscure a lesion on mammography. Findings: Informed consent was obtained and all the patient's questions were answered. The lesion in question was localized sonographically. The standard sterile technique was utilized, as well as appropriate local anesthesia with 1% Lidocaine. Localization needle followed by placement of a guidewire was performed under sonographic guidance. Verification images demonstrate appropriate deployment of the guidewire. The patient tolerated the procedure well and left the department in stable condition. Specimen radiograph demonstrates the clip and mass in question to reside within the specimen. IMPRESSION: Successful needle localization and open biopsy left breast with pathology results pending. Findings: Informed consent was obtained and all the patient's questions were answered. The lesion in question was localized sonographically. The standard sterile technique was utilized, as well as appropriate local anesthesia with 1% Lidocaine. Localization needle followed by placement of a guidewire was performed under sonographic guidance. Verification images demonstrate appropriate deployment of the guidewire. The patient tolerated the procedure well and left the department in stable condition. Specimen radiograph demonstrates the clip and mass in question to reside within the specimen. IMPRESSION: Successful needle localization and open biopsy left breast with pathology results pending. Pathology Description: Location: 10 o'clock, upper inner quadrant. Needle Type: 5 cm [place] Informed consent was obtained and all the patient's questions were answered. The lesion in question was localized sonographically. The standard sterile technique was utilized, as well as appropriate local anesthesia with 1% Lidocaine. Localization needle followed by placement of a guidewire was performed under sonographic guidance. Verification images demonstrate appropriate deployment of the guidewire. The patient tolerated the procedure well and left the department in stable condition. Specimen radiograph demonstrates the clip and mass in question to reside within the specimen. IMPRESSION: Successful needle localization and open biopsy left breast with pathology results pending. Pathology Results: Result: Malignant, Invasive ductal carcinoma. A. LEFT BREAST SENTINEL NODE: Lymph node negative for metastasis. CK7 and DION immunoperoxidase stains are confirmatory (controls appropriate). B. LEFT AXILLARY CONTENTS: One of three lymph nodes positive for metastatic carcinoma. Size of largest metastatic deposit measures 6 mm. C. LEFT BREAST, LUMPECTOMY: Invasive moderately differentiated ductal carcinoma (Grade 2) and intermediate grade DCIS. Invasive carcinoma involves the anterior margin and closely approximates, but does not definitively involve, the posterior and lateral margins. DCIS closely approximates the posterior and lateral margins (invasive carcinoma and DCIS are both much less than 1 mm from the posterior and lateral margins). Other margins negative. See Surgical Pathology Cancer Case Summary. D. ADDITIONAL MEDIAL TISSUE LEFT BREAST: Benign breast tissue with fibrocystic changes. E. NEW ANTERIOR MARGIN, LEFT BREAST: Benign skin and subcutaneous tissue. Overall Assessment: Malignant Assessment: MG diagnostic mammo LT wo CAD. - Left: Known biopsy proven malignancy, BI-RAD 6. Management: Diagnostic Mammogram of the left breast in 6 months. Electronically signed and approved by: Steven Palafox M.D. Radiologis
[2021-11-08 12:15] VITALS: BP 129/73; PULSE 79; RESP 18; TEMP 97.7
--- NOTE | 2021-11-08 12:47 | P.PN ---
Subjective Progress Note Date: 11/08/21 Principal diagnosis: T2 (2.9 cm)N1M0ER+Pr+Her2-G2 left breast invasive ductal cancer Vanessa is a 50 year old white female status post left breast lumpectomy and SNB on 10-30-21. Her margins are negative although close laterally and posteriorly. Posterior dissection was to the pectoralis major muscle. Four axillary nodes were removed, 1 was + for 6 mm tumor. Patient postoperatively initially noticed some swelling under her left arm which has decreased. She thinks this may be related to the tightness of the broad pushing the tissue up under her arm. She was noted to be anemic in the preoperative area at 6.6 prior to her surgery. She been given a unit of packed red blood cells. The anemia is attributed to heavy menstrual cycles. She is going to follow with Dr. Davis later today. Objective - Vital Signs Vital signs: Vital Signs Temp 97.7 F 11/08/21 12:13 Pulse 79 11/08/21 12:13 Resp 18 11/08/21 12:13 BP 129/73 11/08/21 12:13 Pulse Ox 100 11/08/21 12:13 FiO2 Intake & Output 11/07/21 11/08/21 11/08/21 18:59 06:59 18:59 Weight 56.699 kg - Exam BMI: 22.1 - Constitutional General appearance: Present: cooperative - EENT Eyes: Present: EOMI ENT: Present: hearing grossly normal - Neck Neck: Present: normal ROM - Respiratory Respiratory: bilateral: CTA - Cardiovascular Heart sounds: normal: S1, S2 - Integumentary Integumentary Comment(s): incisions clean and dry bilateral , mild swelling under left arm (decreased as per patient) - Musculoskeletal Musculoskeletal: Present: gait normal - Psychiatric Psychiatric: Present: A&O x's 3, appropriate affect, intact judgment & insight Assessment and Plan Assessment: Impression: Breast invasive ductal carcinoma status post lumpectomy and sentinel node biopsy Margins are negative on the lumpectomy specimen although close laterally, one node positive out of 4 Plan: Follow-up radiation oncology Follow-up medical oncology Follow-up gynecology regarding hysterectomy/patient with anemia secondary to heavy menstrual cycles Follow up here in 4 months Cc: Dr. Davis
== END ==
LOC: WWCWWP 12:03
PROVIDERS: ATTEND Surgery
DX: C50.212 Malignant neoplasm of upper-inner quadrant of left female breast (principal); Z98.890 Other specified postprocedural states; Z88.0 Allergy status to penicillin
CPT/HCPCS: 77065

== ENCOUNTER 2021-12-11 08:43 | Observation (INO) | payer OTHER ==
[2021-12-11] MEDS ORDERED: VANCOMYCIN IV PER PHARMACY 1 EACH MISC MISCELLANE PRN (09:02)
--- NOTE | 2021-12-11 09:04 | ED ---
General Adult HPI - General Chief complaint: Skin/Abscess/Foreign Body Stated complaint: Admit, sent by Time Seen by Provider: 12/11/21 08:50 Source: patient, RN notes reviewed, old records reviewed Mode of arrival: ambulatory Limitations: no limitations - History of Present Illness Initial comments: This is a 51-year-old female presents emergency Department who had a biopsy of a sentinel node in early October. Since then the areas become red has been drinking multiple times by Dr. Zacarias but it is not resolving an outpatient antibiotics a nd Dr. Zacarias wants the patient to be admitted and have a infectious disease consult. P patient states lately she's been having a little bit of a fever and the redness and tenderness is getting worse. atient denies any fever - Related Data Home Medications Medication Instructions Recorded Confirmed Multivitamins, Thera [Multivitamin 1 tab PO DAILY 11/28/16 12/11/21 (formulary)] valACYclovir HCL [Valtrex] 1,000 mg PO DAILY PRN 11/28/16 12/11/21 Ascorbic Acid/Collagen Hydr 1 cap PO DAILY 12/11/21 12/11/21 [Collagen Plus Vit C Capsule] Ibuprofen [Motrin Ib] 200 mg PO Q8H PRN 12/11/21 12/11/21 Zoladex 3.6 Implant 1 dose SQ Q28D 12/11/21 12/11/21 Previous Rx's Medication Instructions Recorded clindamycin HCL [Cleocin] 300 mg PO Q6HR #28 cap 12/10/21 Allergies Allergy/AdvReac Type Severity Reaction Status Date / Time Penicillins Allergy Unknown Verified 12/11/21 08:49 Childhood Review of Systems ROS Statement: Those systems with pertinent positive or pertinent negative responses have been documented in the HPI. ROS Other: All systems not noted in ROS Statement are negative. Past Medical History Additional Past Medical History / Comment(s): heavy periods, cold sores, LT BREAST CANCER History of Any Multi-Drug Resistant Organisms: None Reported Past Surgical History: Breast Surgery Past Anesthesia/Blood Transfusion Reactions: No Reported Reaction Past Psychological History: Anxiety Smoking Status: Never smoker Past Alcohol Use History: Rare Past Drug Use History: None Reported General Exam - General Exam Comments Initial Comments: GENERAL: Patient is well-developed and well-nourished. Patient is nontoxic and well- hydrated and is in mild distress. ENT: Neck is soft and supple. No significant lymphadenopathy is noted. Oropharynx is clear. Moist mucous membranes. Neck has full range of motion without eliciting any pain. EYES: The sclera were anicteric and conjunctiva were pink and moist. Extraocular movements were intact and pupils were equal round and reactive to light. Eyelids were unremarkable. PULMONARY: Unlabored respirations. Good breath sounds bilaterally. No audible rales rhonchi or wheezing was noted. CARDIOVASCULAR: There is a regular rate and rhythm without any murmurs gallops or rubs. ABDOMEN: Soft and nontender with normal bowel sounds. SKIN: The incision site is very erythematous tender and draining. NEUROLOGIC: Patient is alert and oriented x3. Cranial nerves II through XII are grossly intact. Motor and sensory are also intact. Normal speech, volume and content. Symmetrical smile. MUSCULOSKELETAL: Normal extremities with adequate strength and full range of motion. LYMPHATICS: No significant lymphadenopathy is noted PSYCHIATRIC: Normal psychiatric evaluation. Limitations: no limitations Course Vital Signs 12/11/21 08:47 Temperature 97.9 F Pulse Rate 69 Respiratory 16 Rate Blood Pressure 115/71 O2 Sat by Pulse 100 Oximetry Medical Decision Making - Medical Decision Making EKG shows sinus rhythm at 70 bpm KS interval is 220 QRS is 85 QT interval 370 QTC is 408. Patient's EKG shows no ST segment elevation or depression. I spoke with Judy Mcclain and she agreed to admit the patient I admitted the patient and wrote admitting orders. I consulted infectious disease. I started the patient vancomycin Disposition Clinical Impression: Surgical site infection Disposition: ADMITTED IP TO THIS [facility] Referrals: Michael Worley MD [Primary Care Provider] - 1-2 days Time of Disposition: 10:34
[2021-12-11] MEDS ORDERED: VANCOMYCIN 1,000 MG in SODIUM CHLORIDE 0.9% 250 ML IVPB STA (09:06)
[2021-12-11] MEDS ORDERED: SODIUM CHLORIDE 0.9% 1,000 ML IV ONE (10:34)
[2021-12-11] MEDS: SODIUM CHLORIDE 0.9% 500 ML 500 ML IV SCH ×2 (10:54→11:33)
[2021-12-11 11:00] LABS: Anisocytosis Slight; Basophils % (A) 1 %; Eosinophils # (A) 0.1 k/uL (0-0.7); Eosinophils % (A) 2 %; HCT 30.2 % (34.0-46.0); Hypochromasia Marked; Lymphocytes # (A) 0.7 k/uL (1.0-4.8); Lymphocytes % (A) 11 %; MCH 23.2 pg (25.0-35.0); MCHC 30.3 g/dL (31.0-37.0); MCV 76.6 fL (80.0-100.0); Mean Platelet Volume 8.3; Microcytosis Slight; Monocytes # (A) 0.4 k/uL (0-1.0); Monocytes % (A) 6 %; Neutrophils # (A) 4.9 k/uL (1.3-7.7); Neutrophils % (A) 78 %; Platelet Count 281 k/uL (150-450); RBC 3.94 m/uL (3.80-5.40); RDW 17.8 % (11.5-15.5); WBC 6.2 k/uL (3.8-10.6)
[2021-12-11 11:15] LABS: HGB 9.1 gm/dL (11.4-16.0)
[2021-12-11 11:23] LABS: ALT 11 U/L (4-34); AST 25 U/L (14-36); African American GFR (CKD) >90 (>60 ml/min/1.73 sqM); Albumin 3.4 g/dL (3.5-5.0); Alkaline Phosphatase 58 U/L (38-126); Anion Gap 9 mmol/L; Blood Urea Nitrogen 5 mg/dL (7-17); Calcium 8.5 mg/dL (8.4-10.2); Carbon Dioxide 23 mmol/L (22-30); Chloride 107 mmol/L (98-107); Glucose 114 mg/dL (74-99); Non-African American GFR(CKD) >90 (>60 ml/min/1.73 sqM); Potassium 3.7 mmol/L (3.5-5.1); Sodium 139 mmol/L (137-145); Total Bilirubin 0.5 mg/dL (0.2-1.3)
[2021-12-11] MEDS: IBUPROFEN 600 MG TAB PO SCH ×3 (13:21→18:39)
[2021-12-11] MEDS ORDERED: VANCOMYCIN 1,000 MG in SODIUM CHLORIDE 0.9% 250 ML IVPB SCH (17:00)
--- NOTE | 2021-12-11 23:03 | P.CONS ---
History of Present Illness - Reason for Consult Consult date: 12/11/21 Infected surgical site Requesting physician: Junior Peterson - Chief Complaint Left axilla pain swelling and drainage x few days - History of Present Illness Patient is a 51-year-old female who is status post left breast lumpectomy completed on 10/30/2021 patient apparently did have a swelling to the left axillary area that she noticed to us initially 2 weeks after the lumpectomy and lymph node biopsy that acutely got inflamed becoming more swollen red and painful patient was evaluated by her surgeon on 11/27/2021 and the patient did have a aspirate of this area cultures subsequently were negative and the patient was treated with the oral doxycycline patient did have worsening pain and swelling and redness to the left axillary area for the patient was evaluated at [facility] ER yesterday evening patient received a dose of cefazolin and was advised to follow-up with her surgeon who did evaluate the patient this morning and did have a repeat aspirate of the area and subsequently patient was sent back to the ER for admission to the hospital for IV antibiotic therapy Case was discussed with me by the surgeon on the phone patient was started on IV vancomycin however the patient was complaining of feeling cold to the right of the site of infusion of the vancomycin, patient be complaining of pain to the left axillary area more of a dull aching at times sharp burning in nature 5-6 of 10 no radiation with associated swelling however the redness is slightly decreased compared to yesterday and no foul-smelling drainage Review of Systems Positive point has been mentioned in the HPI rest of the systems are negative Past Medical History Additional Past Medical History / Comment(s): heavy periods, cold sores, LT BREAST CANCER History of Any Multi-Drug Resistant Organisms: None Reported Past Surgical History: Breast Surgery Past Anesthesia/Blood Transfusion Reactions: No Reported Reaction Past Psychological History: Anxiety Smoking Status: Never smoker Past Alcohol Use History: Rare Past Drug Use History: None Reported Medications and Allergies Home Medications Medication Instructions Recorded Confirmed Type Multivitamins, Thera [Multivitamin 1 tab PO DAILY 11/28/16 12/11/21 History (formulary)] valACYclovir HCL [Valtrex] 1,000 mg PO DAILY PRN 11/28/16 12/11/21 History clindamycin HCL [Cleocin] 300 mg PO Q6HR #28 cap 12/10/21 12/11/21 Rx Ascorbic Acid/Collagen Hydr 1 cap PO DAILY 12/11/21 12/11/21 History [Collagen Plus Vit C Capsule] Ibuprofen [Motrin Ib] 200 mg PO Q8H PRN 12/11/21 12/11/21 History Zoladex 3.6 Implant 1 dose SQ Q28D 12/11/21 12/11/21 History Allergies Allergy/AdvReac Type Severity Reaction Status Date / Time Penicillins Allergy Anaphylaxis Verified 12/11/21 10:33 Physical Exam Vitals: Vital Signs Temp Pulse Resp BP Pulse Ox 12/11/21 08:47 97.9 F 69 16 115/71 100 Intake and Output 12/10/21 12/11/21 12/11/21 22:59 06:59 14:59 Other: Weight 56.699 kg GENERAL DESCRIPTION: Middle-aged female lying in bed, no distress. No tachypnea or accessory muscle of respiration use. HEENT: Shows Pallor , no scleral icterus. Oral mucous membrane is dry. No pharyn geal erythema or thrush NECK: Trachea central, no thyromegaly. LUNGS: Unlabored breathing. Clear to auscultation anteriorly. No wheeze or crackle. HEART: S1, S2, regular rate and rhythm. No loud murmur ABDOMEN: Soft, no tenderness , guarding or rigidity, no organomegaly EXTREMITIES: No edema of feet. SKIN: No rash, no masses palpable. Left axilla did have a swelling and induration and fluctuation which is warm and tender to touch no foul-smelling drainage NEUROLOGICAL: The patient is awake, alert, oriented x3, mood and affect normal. Results CBC & Chem 7: 12/11/21 10:47 12/12/21 07:35 Labs: Abnormal Lab Results - Last 24 Hours (Table) 12/11/21 12/11/21 12/11/21 Range/Units 10:47 10:47 10:47 Hgb 9.1 L D (11.4-16.0) gm/dL Hct 30.2 L (34.0-46.0) % MCV 76.6 L (80.0-100.0) fL MCH 23.2 L (25.0-35.0) pg MCHC 30.3 L (31.0-37.0) g/dL RDW 17.8 H (11.5-15.5) % Lymphocytes # 0.7 L (1.0-4.8) k/uL BUN 5 L (7-17) mg/dL Creatinine 0.50 L (0.52-1.04) mg/dL Glucose 114 H (74-99) mg/dL Plasma Lactic Acid Renato 0.6 L (0.7-2.0) mmol/L Total Protein 6.0 L (6.3-8.2) g/dL Albumin 3.4 L (3.5-5.0) g/dL Assessment and Plan (1) Surgical site infection Status: Acute Code(s): T81.49XA - INFECTION FOLLOWING A PROCEDURE, OTHER SURGICAL SITE, INIT SNOMED Code(s): 24648162 Plan: 1patient with a left axillary cellulitis in this patient who is s/p left breast lumpectomy and lymph node biopsy completed on 10/30/2021 subsequent developing a seroma to the left axillary area and now with concern for possible infected seroma patient did have aspirate of the area on 12/07/2021 that was negative and has failed to respond to the oral doxycycline therapy likely need to cover for the gram-positive skin katja 2-patient with a penicillin allergy however has tolerated cefazolin without any problem 3-patient reporting some local reaction to the vancomycin at time of infusion 4-patient is status post aspirate of the left axillary area per surgery this morning and those cultures will be followed 5-discontinue vancomycin 6-we will start the patient cefazolin 2 g every 8 hours We will follow on clinical condition and cultures to further adjust medication if needed Thank you for this consultation will follow this patient along with you Time with Patient: Greater than 30
[2021-12-12] MEDS: IBUPROFEN 600 MG TAB PO SCH ×3 (00:22→12:48)
[2021-12-12 08:32] VITALS: BP 110/71; PULSE 64; RESP 17; TEMP 98.9
[2021-12-12 09:34] LABS: ALT 10 U/L (4-34); AST 21 U/L (14-36); African American GFR (CKD) >90 (>60 ml/min/1.73 sqM); Albumin 3.3 g/dL (3.5-5.0); Albumin/Globulin Ratio 1.3; Alkaline Phosphatase 66 U/L (38-126); Anion Gap 9 mmol/L; Blood Urea Nitrogen 4 mg/dL (7-17); Calcium 8.2 mg/dL (8.4-10.2); Carbon Dioxide 21 mmol/L (22-30); Chloride 110 mmol/L (98-107); Globulin 2.6 g/dL; Glucose 81 mg/dL (74-99); Non-African American GFR(CKD) >90 (>60 ml/min/1.73 sqM); Potassium 4.1 mmol/L (3.5-5.1); Sodium 140 mmol/L (137-145); Total Bilirubin 0.2 mg/dL (0.2-1.3); Total Protein 5.9 g/dL (6.3-8.2)
--- NOTE | 2021-12-12 11:25 | P.PN ---
Subjective Progress Note Date: 12/12/21 Principal diagnosis: Cellulitis left axilla Vanessa is a 51-year-old white female status post left [place] lumpect[place] [id number]. She recently developed an erythema and pain in the left axilla. She was seen in the office where a seroma was aspirated on . Initial cultures were negative. She was sent home on doxycycline. However the area of erythema increased and she was seen in the emergency room and given an IV dose of antibiotic and subsequently seen in the office on . At that time the area of erythema appeared to have increased in size and she was admitted for IV antibiotic therapy. The seroma was again aspirated for 20 mL of clear fluid and this was again sent for culture. These cultures are pending. She was seen in the hospital by infectious disease and is presently on IV Cefazolin. The area of erythema has decreased. She is afebrile. Her white count was 6.2. The discomfort has improved. Objective - Vital Signs Vital signs: Vital Signs Temp 98.9 F 12/12/21 08:31 Pulse 64 12/12/21 08:31 Resp 17 12/12/21 08:31 BP 110/71 12/12/21 08:31 Pulse Ox 100 12/12/21 08:31 FiO2 Intake & Output 12/11/21 12/12/21 12/12/21 18:59 06:59 18:59 Intake Total 1370 Balance 1370 Weight 56.699 kg 56.699 kg Intake: Intake, IV Titration 650 Amount Sodium Chloride 0.9% 1, 600 000 ml @ 75 mls/hr IV . [id number] ONE Rx#:[id number] ceFAZolin 2 gm In Sodium 50 Chloride 0.9% 50 ml @ 100 mls/hr IVPB Q8H [facility] Rx#: [id number] Oral 720 Other: # Voids 2 - Constitutional General appearance: Present: cooperative - EENT Eyes: Present: EOMI ENT: Present: hearing grossly normal - Neck Neck: Present: normal ROM - Respiratory Respiratory: bilateral: CTA - Cardiovascular Heart sounds: normal: S1, S2 - Integumentary Integumentary Comment(s): Left axilla decreased erythema, some mild oozing from the incision site of serous appearing fluid - Labs CBC & Chem 7: 12/11/21 10:47 12/12/21 07:35 Labs: Abnormal Lab Results - Last 24 Hours (Table) 12/11/21 12/12/21 Range/Units 10:47 07:35 Chloride 110 H (98-107) mmol/L Carbon Dioxide 21 L (22-30) mmol/L BUN 5 L 4 L (7-17) mg/dL Creatinine 0.50 L 0.48 L (0.52-1.04) mg/dL Glucose 114 H (74-99) mg/dL Calcium 8.2 L (8.4-10.2) mg/dL Total Protein 6.0 L 5.9 L (6.3-8.2) g/dL Albumin 3.4 L 3.3 L (3.5-5.0) g/dL Assessment and Plan Assessment: Impression: Improving erythema and discomfort left axillary region Plan: Await cultures Antibiotic therapy as per infectious disease Probable discharge home in the near future CC: Dr. Davis
[2021-12-12 11:29] LABS: C Reactive Protein 4.3 mg/dL (<1.0)
--- NOTE | 2021-12-19 09:47 | P.PN ---
Subjective Progress Note Date: 12/12/21 Principal diagnosis: Left axilla infected seroma Patient is a 51-year-old female who is status post left breast lumpectomy and left axillary lymph node dissection subsequently developing a seroma to the left axillary area with concern for secondary cellulitis failing outpatient therapy. On today's evaluation that is 12/12/2021, the patient denies having any fever or any chills, patient did mention the left axillary area swelling and redness has slightly decreased the patient complaining of less pain since having some drainage but no foul-smelling denies any chest pain or shortness of breath or cough patient has been recently insisting on going home Objective - Vital Signs Vital signs: Vital Signs Temp 98.9 F 12/12/21 08:31 Pulse 64 12/12/21 08:31 Resp 17 12/12/21 08:31 BP 110/71 12/12/21 08:31 Pulse Ox 100 12/12/21 08:31 FiO2 Intake & Output 12/11/21 12/12/21 12/12/21 18:59 06:59 18:59 Intake Total 1370 Balance 1370 Weight 56.699 kg 56.699 kg Intake: Intake, IV Titration 650 Amount Sodium Chloride 0.9% 1, 600 000 ml @ 75 mls/hr IV . [id number] ONE Rx#:[id number] ceFAZolin 2 gm In Sodium 50 Chloride 0.9% 50 ml @ 100 mls/hr IVPB Q8H COUNTS INCLUDE 234 BEDS AT THE [facility] Rx#: [id number] Oral 720 Other: # Voids 2 - Exam GENERAL DESCRIPTION: Middle-aged female lying in bed in no distress RESPIRATORY SYSTEM: Unlabored breathing , decreased breath sounds at bases HEART: S1 S2 regular rate and rhythm , ABDOMEN: Soft , no tenderness EXTREMITIES: No edema feet Left axillary area did have a swelling redness has slightly decreased in no foul-smelling drainage - Labs CBC & Chem 7: 12/11/21 10:47 12/12/21 07:35 Labs: Abnormal Lab Results - Last 24 Hours (Table) 12/11/21 12/11/21 12/11/21 Range/Units 10:47 10:47 10:47 Hgb 9.1 L D (11.4-16.0) gm/dL Hct 30.2 L (34.0-46.0) % MCV 76.6 L (80.0-100.0) fL MCH 23.2 L (25.0-35.0) pg MCHC 30.3 L (31.0-37.0) g/dL RDW 17.8 H (11.5-15.5) % Lymphocytes # 0.7 L (1.0-4.8) k/uL BUN 5 L (7-17) mg/dL Creatinine 0.50 L (0.52-1.04) mg/dL Glucose 114 H (74-99) mg/dL Plasma Lactic Acid Renato 0.6 L (0.7-2.0) mmol/L Total Protein 6.0 L (6.3-8.2) g/dL Albumin 3.4 L (3.5-5.0) g/dL Assessment and Plan (1) Surgical site infection Status: Acute Code(s): T81.49XA - INFECTION FOLLOWING A PROCEDURE, OTHER SURGICAL SITE, INIT SNOMED Code(s): 19757626 Plan: 1patient with a left axillary cellulitis in this patient who is s/p left breast lumpectomy and lymph node biopsy completed on 10/30/2021 subsequent developing a seroma to the left axillary area and now with concern for possible infected seroma patient did have aspirate of the area on 12/07/2021 that was negative and has failed to respond to the oral doxycycline therapy likely need to cover for the gram-positive skin katja 2-patient with a penicillin allergy however has tolerated cefazolin without any problem 3-patient has shown clinical improvement with cefazolin however the patient has been insisting on going home instead of waiting for the cultures patient was given the option of continuation of IV cefazolin through a midline four-week with the patient agreed multiple calls were made during the day to make it possible for the patient to get discharge today Amount of time spent has been more than 35 minutes in her care Time with Patient: Greater than 30
== END 2021-12-12 15:58 | disposition home health service (06) ==
LOC: EC 08:43 → 4SSUR 10:34 → INTOOBSV 10:34 → 4SSUR 18:49 → UNDODISIN 12-12 15:58
PROVIDERS: ADMIT Surgery; ATTEND Surgery
PROC: 05H933Z Insertion of Infusion Device into Right Brachial Vein, Percutaneous Approach (ICD-10-PCS; principal; 2021-12-12 12:30)
DX: T81.43XA Infection following a procedure, organ and space surgical site, initial encounter (principal); L03.112 Cellulitis of left axilla; F41.9 Anxiety disorder, unspecified; N92.0 Excessive and frequent menstruation with regular cycle; Z88.0 Allergy status to penicillin; Z79.899 Other long term (current) drug therapy; Z85.3 Personal history of malignant neoplasm of breast
CPT/HCPCS: 96361 ×2; 96366 ×3; 96365; 96367; 99285; 94760; 93005; 36410; 76937; 80053 ×2; 83605; 85025; 86140; 87040; G0378 ×2; C1751; J3370; J0690 ×2; 96368; 99284

== ENCOUNTER → 2021-12-28 | Outpatient (CLI) | payer OTHER ==
[2021-12-28 14:31] VITALS: BP 106/63; PULSE 78; RESP 16; TEMP 98.4
--- NOTE | 2021-12-28 15:01 | P.PN ---
Progress Note - Text Progress Note Date: 12/28/21 Cellulitis left axilla Vanessa is a 51-year-old white female status post left breast lumpectomy and sentinel node biopsy on . She developed erythema and pain in the left axilla several weeks ago.. She was seen in the office where a seroma was aspirated on . Initial cultures were negative. She was sent home on doxycycline. However the area of erythema increased and she was seen in the emergency room and given an IV dose of [place] [id number]. At that time the area of erythema appeared to have increased in size and she was admitted for IV antibiotic therapy. The seroma was again aspirated for 20 mL of clear fluid and this was again sent for culture. A medline was placed and she received IV antibiotic therapy as per infectious disease. The area of erythema has resolved. The MEDLINE has been removed. She is presently receiving radiation therapy and has had her third dose. At this time she does not have complaints related to the breast or the axilla. She is not having any fever or chills. Left Axilla: Decreased erythema, no seroma small area of nodularity at incision site will follow at this time Heart: Regular rate and rhythm Lungs: Clear Plan: Continue radiation therapy scheduled for hysterectomy on March 28 Patient to follow up in [facility]
== END ==
LOC: WWCWWP 13:44
PROVIDERS: ATTEND Surgery
DX: L76.34 Postprocedural seroma of skin and subcutaneous tissue following other procedure (principal); Z88.0 Allergy status to penicillin

== ENCOUNTER → 2022-03-21 | Outpatient (CLI) | payer OTHER ==
[2022-03-21 15:08] LABS: Basophils # (A) 0.05 X 10*3/uL (0.00-0.10); Basophils % (A) 1.2 %; Eosinophils # (A) 0.15 X 10*3/uL (0.04-0.35); Eosinophils % (A) 3.5 %; HCT 42.7 % (37.2-46.3); HGB 13.9 g/dL (12.0-15.0); Immature Grans, Automated 0.2 %; Lymphocytes # (A) 0.59 X 10*3/uL (0.90-5.00); Lymphocytes % (A) 13.9 %; MCH 27.3 pg (27.0-32.0); MCHC 32.6 g/dL (32.0-37.0); MCV 83.9 fL (80.0-97.0); Mean Platelet Volume 10.7 fL (9.5-12.2); Monocytes # (A) 0.38 X 10*3/uL (0.20-1.00); NRBC Per 100 WBC 0 /100 WBCS (0.0-0.0); Neutrophils # (A) 3.05 X 10*3/uL (1.80-7.70); Neutrophils % (A) 72.2 %; Platelet Count 245 X 10*3/uL (140-440); RBC 5.09 X 10*6/uL (4.10-5.20); RDW 17.1 % (11.5-14.5); WBC 4.23 X 10*3/uL (4.50-10.00)
[2022-03-21 15:31] LABS: African American GFR (CKD) 116.4 (60.0-200.0); Anion Gap 11.9 mmol/L (10.00-18.00); BUN/Creat Ratio 16.77 Ratio (12.00-20.00); Blood Urea Nitrogen 11.2 mg/dL (9.0-27.0); Calcium 9.9 mg/dL (8.7-10.3); Carbon Dioxide 27.5 mmol/L (20.0-27.5); Non-African American GFR(CKD) 100.5 (60.0-200.0); Potassium 4.1 mmol/L (3.5-5.5)
== END | disposition home or self-care (01) ==
LOC: LABWHC1 09:42
PROVIDERS: ATTEND Obstetrics & Gynecology
DX: Z01.812 Encounter for preprocedural laboratory examination (principal)
CPT/HCPCS: 36415; 80048; 85025

== ENCOUNTER 2022-03-28 05:32 | Day surgery (SDC) | payer OTHER ==
[2022-03-25 15:07] VITALS: BMI 19.5
--- NOTE | 2022-03-27 18:03 | P.HPOB ---
History of Present Illness H&P Date: 03/27/22 Chief Complaint: menorrhagia, ER/MT+ breast cancer 51-year-old presents with a history of uterine fibroids, menorrhagia and anemia. She also has a recent diagnosis of breast cancer that is ER/MT+. She will undergo a total laparoscopic hysterectomy bilateral salpingo-oophorectomy using da Jessica and diagnostic cystoscopy. Review of Systems All systems: negative Constitutional: Denies chills, Denies fever Eyes: denies blurred vision, denies pain Ears, nose, mouth and throat: Denies headache, Denies sore throat Cardiovascular: Denies chest pain, Denies shortness of breath Respiratory: Denies cough Gastrointestinal: Denies abdominal pain, Denies diarrhea, Denies nausea, Denies vomiting Genitourinary: Denies dysuria, Denies hematuria Musculoskeletal: Denies myalgias Integumentary: Denies pruritus, Denies rash Neurological: Denies numbness, Denies weakness Psychiatric: Denies anxiety, Denies depression Endocrine: Denies fatigue, Denies weight change Past Medical History Past Medical History: Cancer Additional Past Medical History / Comment(s): heavy periods, cold sores, LT BREAST CANCER-WITH RADIATION History of Any Multi-Drug Resistant Organisms: None Reported Past Surgical History: Breast Surgery Additional Past Surgical History / Comment(s): lt breast lumpectomy. I & D LT SENTINAL LOBE SEVERAL TIMES-RESOLVED Past Anesthesia/Blood Transfusion Reactions: No Reported Reaction Smoking Status: Never smoker - Past Family History Mother Family Medical History: No Reported History Medications and Allergies Home Medications Medication Instructions Recorded Confirmed Type Multivitamins, Thera [Multivitamin 1 tab PO DAILY 11/28/16 03/25/22 History (formulary)] valACYclovir HCL [Valtrex] 1,000 mg PO DAILY PRN 11/28/16 03/25/22 History Ascorbic Acid/Collagen Hydr 1 cap PO DAILY 12/11/21 03/25/22 History [Collagen Plus Vit C Capsule] Ibuprofen [Motrin Ib] 200 mg PO Q8H PRN 12/11/21 03/25/22 History Zoladex 3.6 Implant 1 dose SQ Q28D 12/11/21 03/25/22 History Letrozole [Femara] 2.5 mg PO DAILY 12/28/21 03/25/22 History Allergies Allergy/AdvReac Type Severity Reaction Status Date / Time Penicillins Allergy Anaphylaxis Verified 03/25/22 14:51 Exam Osteopathic Statement: *. No significant issues noted on an osteopathic structural exam other than those noted in the History and Physical/Consult. Heart: Regular rate and rhythm Lungs: Clear to auscultation bilaterally Abdomen: Soft, nontender Extremities: Negative Homans sign Assessment and Plan (1) Fibroid uterus Status: Acute Code(s): D25.9 - LEIOMYOMA OF UTERUS, UNSPECIFIED SNOMED Code(s): 70889721 (2) Menorrhagia Status: Chronic Code(s): N92.0 - EXCESSIVE AND FREQUENT MENSTRUATION WITH REGULAR CYCLE SNOMED Code(s): 278596860 (3) Breast cancer Status: Chronic Code(s): C50.919 - MALIGNANT NEOPLASM OF UNSP SITE OF UNSPECIFIED FEMALE BREAST SNOMED Code(s): 436595664 Plan: 1. Total laparoscopic hysterectomy bilateral salpingo-oophorectomy using da Jessica, diagnostic cystoscopy.
[2022-03-28] MEDS ORDERED: HYDROmorphone 0.5 MG/0.5 ML SYRINGE IVP PRN (05:51)
[2022-03-28] MEDS: DEXAMETHASONE SOD PHOSPHATE 4 MG/ML 1 ML VIAL IV ONE ×2 (06:50→07:13)
[2022-03-28] MEDS: ONDANSETRON 4 MG/2 ML VIAL IVP ONE ×2 (06:50→07:14)
[2022-03-28] MEDS ORDERED: MIDAZOLAM 2 MG/2 ML VIAL IVP ONE (06:54)
[2022-03-28] MEDS ORDERED: fentaNYL (PF) 50 MCG/1 ML VIAL IVP ONE (06:54)
[2022-03-28] MEDS ORDERED: ROCURONIUM 10 MG/ML (5 ML VIAL) IV ONE (07:09)
[2022-03-28] MEDS ORDERED: PROPOFOL 10 MG/ML 20 ML VIAL IV ONE (07:09)
[2022-03-28] MEDS ORDERED: KETOROLAC 15 MG/ML 1 ML VIAL ONE (07:09)
[2022-03-28] MEDS ORDERED: HYDROmorphone (PF) 1 MG/ML ONE (07:09)
[2022-03-28] MEDS ORDERED: SODIUM CHLORIDE 0.9% (PF) 10 ML VIAL ONE (07:09)
[2022-03-28] MEDS ORDERED: SUCCINYLCHOLINE CHLORIDE 200 MG/10 ML VIAL IV ONE (07:09)
[2022-03-28] MEDS ORDERED: fentaNYL (PF) 50 MCG/ML 2 ML AMP ONE (07:09)
[2022-03-28] MEDS ORDERED: GLYCOPYRROLATE 0.2 MG/ML 2 ML VIAL ONE (07:09)
[2022-03-28] MEDS ORDERED: MIDAZOLAM 2 MG/2 ML VIAL ONE (07:09)
[2022-03-28] MEDS ORDERED: LIDOCAINE 2% INJ 20 MG/ML (2 ML VIAL) ONE (07:09)
[2022-03-28] MEDS ORDERED: ROPIVACAINE 5 MG/ML 30 ML VIAL ONE (07:09)
[2022-03-28] MEDS ORDERED: NEOSTIGMINE 1 MG/ML 10 ML VIAL ONE (07:09)
[2022-03-28] MEDS: LACTATED RINGERS 1,000 ML IV SCH (07:13)
--- NOTE | 2022-03-28 07:40 | P.ANPRN ---
Procedure Note - Anesthesia - Nerve Block Performed Bilateral Erector Spinae Single Time Out Performed: Yes ([id number]) Date of Procedure: 03/28/22 Procedure Start Time: 06:54 Procedure Stop Time: 07:00 Location of Patient: PreOp Indication: Acute Post-Operative Pain, Requested by Surgeon Specifically requested for management of pain by DrKaty: Fab[facility] Sedation Type: Sedate with meaningful contact maintained Preparation: Sterile Prep Position: Prone Catheter: None Needle Types: Pajunk Needle Gauge: 21 Ultrasound used to visualize needle placement: Yes Ultrasound used to observe medication spread: Yes Injectate: 0.5% Ropivacaine (see comment for volume) (15cc + 5cc nacl pf) Blood Aspirated: No Pain Paresthesia on Injection Noted: No Resistance on Injection: Normal Image Stored and Saved: Yes Events: Uneventful and Well Tolerated
[2022-03-28] MEDS ORDERED: BUPIVACAINE (PF) 0.25% 30 ML VIAL SQ ONE ×2 (08:28→09:37)
[2022-03-28] MEDS ORDERED: LACTATED RINGERS 1,000 ML IV ONE (09:19)
[2022-03-28] MEDS ORDERED: SIMETHICONE 80 MG CHEWABLE PO PRN (10:43)
[2022-03-28] MEDS ORDERED: Acetaminophen-Codeine 300-30mg TAB PO PRN ×2 (10:43)
[2022-03-28] MEDS ORDERED: IBUPROFEN 600 MG TAB PO PRN (10:43)
--- NOTE | 2022-03-28 11:30 | P.OP ---
Date of Procedure: 03/28/22 Preoperative Diagnosis: 1. Fibroid uterus 2. menorrhagia 3. ER/AK positive breast cancer Postoperative Diagnosis: same Procedure(s) Performed: Total laparoscopic hysterectomy bilateral salpingo-oophorectomy using da Jessica and the Eric bag retractor and diagnostic cystoscopy Anesthesia: WESLY Surgeon: Faby Davis Consultant Rn #1: Manjula Fernandez Estimated Blood Loss (ml): 200 IV fluids (ml): 900 Urine output (ml): 100 Pathology: other (Uterus, cervix, in pieces bilateral tubes and ovaries) Condition: stable Disposition: PACU Operative Findings: Large fibroid uterus normal bilateral tubes and ovaries Description of Procedure: Patient taken the operating room where general anesthesia was obtained without difficulty. She is prepped and draped in normal sterile fashion dorsal lithotomy position, legs placed in the Gumaro stirrups. Weighted speculum placed in the vagina and the anterior lip the cervix was grasped with single-tooth tenaculum. The uterus sounded to 10 cm and the cervix diameter was 3.5 cm. The appropriate manipulator tip and ring were placed on the Hyun manipulator. The Hyun manipulator was then placed in the uterus. Villatoro catheter was also placed. Attention was then turned to the abdomen and gloves were changed. A 5 mm supraumbilical incision was made the scalpel and a 5 mm optical trocar was placed under direct visualization. 10 cm to the right of this and 2 cm down a 5 mm incision was made and 8 mm da Jessica port was placed under direct visualization. Same measurements on the opposite side of the patient's abdomen, the 5 mm incision was made and 8 mm da Jessica port was placed under direct visualization. In the left upper quadrant a 10 mm incision was made and a 10 mm optical trocar was placed under direct visualization. The 5 mm optical trocar was then replaced with the 8 mm da Jessica camera port. The robot was docked on patient's left side. The camera was introduced and then the monopolar curved scissor and [place] bipolar placed under direct visualization. I broke scrub and went to the physician console. The left infundibulopelvic ligament was cauterized with the Maryland bipolar and cut with monopolar curved scissors. The left round ligament was cauterized with the [place] bipolar and cut with monopolar curved scissors. The posterior leaf of the broad ligament was taken down using the monopolar curved scissors. Anterior leaf of the broad ligament was then taken down using the monopolar curved scissors. The uterine artery was cauterized with the [place] bipolar and cut with monopolar curved scissors. The bladder flap was then started using the monopolar curved scissors. Attention was then turned to the right side of the patient's anatomy and the right infundibular pelvic ligament was cauterized with the Maryland bipolar and cut with monopolar curved scissors. The right round ligament was cauterized with the [place] bipolar and cut with monopolar curved scissors. Posterior leaf of the broad ligament was taken down using the monopolar curved scissors and the anterior leaf was taken down using the monopolar curved scissors. The uterine artery was cauterized the Maryland bipolar cut with monopolar curved scissors. The bladder flap was then finished on this side. Anterior colpotomy was made using the monopolar curved scissors. The rest of the uterus was from the vaginal cuff by following the ring around with the monopolar curved scissors through the uterosacral ligaments back to the anterior portion. Once the uterus and cervix were amputated they were noted to be to large to be taken through the vaginal cuff intact. An Eric Thomas retractor was placed through the vaginal incision and the uterus is placed into the bag. Scrubbed back in along with Dr. Fernandez's help, we morcellated the uterus vaginally in the bag and took it out through the vagina. Hemostasis was assured. The instruments were changed for the Cardier forcep and the mariana suture cut. The vaginal cuff was then closed using O stratafix barbed suture in a running fashion. Hemostasis was again assured and the pelvis was irrigated. All instruments were removed from the abdomen and the robot was undocked. I scrubbed back in to perform a cystoscopy. There were jets from both ureteral orifices. The abdominal incisions were closed with 4-0 Vicryl in a subcuticular fashion. Patient tolerated the procedure well, sponge and instrument counts correct 2 and she was taken to recovery room in stable condition condition
[2022-03-28 11:31] VITALS: RESP 16
[2022-03-28] MEDS: KETOROLAC 15 MG/ML 1 ML VIAL IVP PRN ×2 (13:18→20:33)
[2022-03-28 23:48] VITALS: BP 111/66; PULSE 63; TEMP 98.2
[2022-03-29] MEDS: LACTATED RINGERS 1,000 ML IV SCH (05:51)
--- NOTE | 2022-03-29 07:32 | P.DS ---
Providers Expected date of discharge: 03/29/22 Attending physician: Faby Davis Primary care physician: Michael Worley - Discharge Diagnosis(es) (1) Fibroid uterus Current Visit: No Status: Resolved (2) Menorrhagia Current Visit: No Status: Resolved (3) Breast cancer Current Visit: No Status: Chronic Hospital Course: patient presented for total laparoscopic hysterectomy bilateral salpingectomy and oophorectomy with da Jessica and diagnostic cystoscopy. She underwent this procedure without complication. Postoperative course was uneventful. She denies nausea, vomiting, chest pain, shortness of breath or calf pain. She'll be discharged home was operative day #1 in stable condition to follow-up with me in 3 weeks. Plan - Discharge Summary Discharge Rx Participant: Yes New Discharge Prescriptions: New Ibuprofen [Motrin] 600 mg PO Q6HR PRN #30 tab PRN Reason: Mild Discomfort No Action Multivitamins, Thera [Multivitamin (formulary)] 1 tab PO DAILY valACYclovir HCL [Valtrex] 1,000 mg PO DAILY PRN PRN Reason: Cold Sores Ascorbic Acid/Collagen Hydr [Collagen Plus Vit C Capsule] 1 cap PO DAILY Ibuprofen [Motrin Ib] 200 mg PO Q8H PRN PRN Reason: Fever And/ Or Pain Zoladex 3.6 Implant 1 dose SQ Q28D Letrozole [Femara] 2.5 mg PO DAILY Discharge Medication List Multivitamins, Thera [Multivitamin (formulary)] 1 tab PO DAILY 11/28/16 [History] valACYclovir HCL [Valtrex] 1,000 mg PO DAILY PRN 11/28/16 [History] Ascorbic Acid/Collagen Hydr [Collagen Plus Vit C Capsule] 1 cap PO DAILY 12/11/21 [History] Ibuprofen [Motrin Ib] 200 mg PO Q8H PRN 12/11/21 [History] Zoladex 3.6 Implant 1 dose SQ Q28D 12/11/21 [History] Letrozole [Femara] 2.5 mg PO DAILY 12/28/21 [History] Ibuprofen [Motrin] 600 mg PO Q6HR PRN #30 tab 03/29/22 [Rx] Follow up Appointment(s)/Referral(s): Faby Davis DO [Doctor of Osteopathic Medicine] - 3 Weeks Discharge Disposition: HOME SELF-CARE
[2022-03-29 07:39] LABS: Anisocytosis Slight; Basophils % (A) 0 %; Eosinophils # (A) 0.1 k/uL (0-0.7); Eosinophils % (A) 1 %; HCT 38.5 % (34.0-46.0); HGB 13.1 gm/dL (11.4-16.0); Lymphocytes # (A) 0.4 k/uL (1.0-4.8); Lymphocytes % (A) 7 %; MCH 28.6 pg (25.0-35.0); MCV 84.1 fL (80.0-100.0); Mean Platelet Volume 8.2; Monocytes # (A) 0.5 k/uL (0-1.0); Monocytes % (A) 8 %; Neutrophils # (A) 5.1 k/uL (1.3-7.7); Neutrophils % (A) 82 %; Platelet Count 189 k/uL (150-450); RBC 4.58 m/uL (3.80-5.40); RDW 16.2 % (11.5-15.5); WBC 6.2 k/uL (3.8-10.6)
== END 2022-03-29 08:40 | disposition home or self-care (01) ==
LOC: OR 05:32 → 4FBP 09:40 → OR 03-29 08:40
PROVIDERS: ATTEND Obstetrics & Gynecology
DX: D25.9 Leiomyoma of uterus, unspecified (principal); G89.18 Other acute postprocedural pain; D64.9 Anemia, unspecified; C50.912 Malignant neoplasm of unspecified site of left female breast; N92.0 Excessive and frequent menstruation with regular cycle; Z17.0 Estrogen receptor positive status [ER+]; Z79.1 Long term (current) use of non-steroidal anti-inflammatories (NSAID); Z79.811 Long term (current) use of aromatase inhibitors; Z85.3 Personal history of malignant neoplasm of breast; Z86.018 Personal history of other benign neoplasm; Z88.0 Allergy status to penicillin; C50.919 Malignant neoplasm of unspecified site of unspecified female breast
CPT/HCPCS: 58552; 81025; 64461; 86900; 86901; 85025; 86850; J2250; J0330; J1100; J2710; J0690; J2405; J3010 ×2; J1170; J2795; J1885; J2704; J2001

== ENCOUNTER → 2022-05-01 | Outpatient (CLI) | payer OTHER ==
--- NOTE | 2022-05-01 14:18 | BD ---
EXAMINATION TYPE: Axial Bone Density DATE OF EXAM: 05/01/2022 COMPARISON: NONE CLINICAL HISTORY: 51 year old Female. ICD-10 CODE: C50.212 Breast ca Height: 63 Weight: 108.9 FRAX RISK QUESTIONS: Alcohol (3 or more units per day): no Family History (Parent hip fracture): no Glucocorticoids (More than 3mos): no (Ex: prednisone, prednisolone, methylprednisolone, dexamethasone, and hydrocortisone). History of Fracture in Adulthood: no Secondary Osteoporosis: 1. Type 1 Diabetes: no 2. Hyperthyroidism: no 3. Menopause before 45: no 4. Malnutrition: no 5. Chronic liver disease: no Rheumatoid Arthritis: no Current Tobacco Use: no RISK FACTORS HISTORY OF: Surgery to Spine/Hip(right/left)/Wrist (right/left): no Family History of Osteoporosis: yes Active: yes Diet low in dairy products/other sources of calcium: yes Postmenopausal woman: yes Lost more than 2 inches in height since high school: no MEDICATIONS: Additional History: EXAM MEASUREMENTS: Bone mineral densitometry was performed using the KitLocate System. Bone mineral density as measured about the Lumbar spine is: ----- L1-L4(G/cm2): 1.258 T Score Values are as follows: ----- L1: -0.1 ----- L2: 0.2 ----- L3: 0.9 ----- L4: 1.3 ----- L1-L4: 0.6 Bone mineral density : baseline Bone mineral density about the R hip (g/cm2): 0.951 Bone mineral density about the L hip (g/cm2): 0.997 T Score values are as follows: -----R Neck: -0.6 -----L Neck: -0.3 -----R Total: -0.5 -----L Total: -0.4 Bone mineral density : baseline FRAX%s: The graph provided illustrates a 4.2% chance for a major osteoporotic fx and a 0.2% chance fo r the hips probability for fx in 10 years time. IMPRESSION: Normal (Values between +1 and -1 indicate normal bone mass). Consider repeating this study in 5 year s or sooner if there is some new clinical indication. NOTE: T-SCORE=SD OF THE YOUNG ADULT MEAN.
== END | disposition home or self-care (01) ==
LOC: RADBDWWP 09:35
PROVIDERS: ATTEND Internal Medicine Hematology & Oncology
DX: C50.212 Malignant neoplasm of upper-inner quadrant of left female breast (principal); Z78.0 Asymptomatic menopausal state
CPT/HCPCS: 77080

== ENCOUNTER → 2022-05-20 | Outpatient (CLI) | payer OTHER ==
--- NOTE | 2022-05-20 09:38 | MM ---
Reason for Exam: Hx of breast cancer, conservation therapy. Last screening mammogram was performed 9 month(s) ago. Patient History: Menarche at age 8. Patient has no children. Left ovary removed at age 51. Right ovary removed at age 51. Hysterectomy at age 51. Postmenopausal. Breast cancer, left, age 50. Previous DCIS pathology result. Previous chest radiation therapy at age 51. 10/30/2021, Lumpectomy on the Left side. 10/30/2021, Malignant US breast localization LT on the left side. 08/24/2021, Malignant Core Biopsy on the left side. Prior Study Comparison: 08/17/2021 Bilateral Diagnostic Mammogram, [facility]. 08/24/2021 Left Diagnostic Mammogram, [facility]. 10/30/2021 Left MG diagnostic mammo LT wo CAD., [facility]. Tissue Density: Left: The breast tissue is heterogeneously dense. This may lower the sensitivity of mammography. Findings: Analyzed By CAD. Postsurgical images of the left breast. No suspicious calcifications or new suspicious mass. Overall Assessment: Benign, BI-RAD 2 Management: Diagnostic Mammogram of both breasts in 6 months. A clinical breast exam by your physician is recommended on an annual basis and results should be correlated with mammographic findings. This exam should not preclude additional follow-up of suspicious palpable abnormalities. Results were given to the patient verbally at the time of exam. Electronically signed and approved by: Moy Farmer D.O.
--- NOTE | 2022-05-20 10:12 | USB ---
Reason for Exam: Follow-up at short interval from prior study. Patient History: Menarche at age 8. Patient has no children. Left ovary removed at age 51. Right ovary removed at age 51. Hysterectomy at age 51. Postmenopausal. Breast cancer, left, age 50. Previous DCIS pathology result. Previous chest radiation therapy at age 51. 10/30/2021, Lumpectomy on the Left side. 10/30/2021, Malignant US breast localization LT on the left side. 08/24/2021, Malignant Core Biopsy on the left side. Technique: Method: Targeted. Prior Study Comparison: 08/17/2021 Bilateral Diagnostic Ultrasound, [facility]. 08/17/2021 Bilateral Diagnostic Mammogram, [facility]. 08/24/2021 Left Diagnostic Mammogram, [facility]. 10/30/2021 Left MG diagnostic mammo LT wo CAD., [facility]. Findings: The upper inner quadrant of the left breast, the axilla of the left breast and the retroareolar of the left breast were scanned. Targeted ultrasound of the left breast at 9-11 o'clock was performed. Additional evaluation of the nipple and axilla was performed. There is a small anechoic seroma at the surgical site the left breast at 10:00 without internal color flow measuring 1.0 x 0.4 x 1.4 cm. No suspicious solid mass. No suspicious adenopathy. Overall Assessment: Benign, BI-RAD 2 Management: Diagnostic Mammogram of both breasts in 6 months. A clinical breast exam by your physician is recommended on an annual basis and results should be correlated with mammographic findings. This exam should not preclude additional follow-up of suspicious palpable abnormalities. Results were given to the patient verbally at the time of exam. Electronically signed and approved by: Moy Farmer D.O.
== END | disposition home or self-care (01) ==
LOC: RADMAMWWP 09:09
PROVIDERS: ATTEND Obstetrics & Gynecology
DX: R92.8 Other abnormal and inconclusive findings on diagnostic imaging of breast (principal); Z78.0 Asymptomatic menopausal state; Z85.3 Personal history of malignant neoplasm of breast
CPT/HCPCS: 77061; 77065

== ENCOUNTER → 2022-11-19 | Outpatient (CLI) | payer OTHER ==
--- NOTE | 2022-11-19 09:36 | MM ---
Reason for Exam: Follow-up at short interval from prior study. Last mammogram was performed 1 year(s) and 4 month(s) ago. Patient History: Menarche at age 8. Patient has no children. Left ovary removed at age 51. Right ovary removed at age 51. Hysterectomy at age 51. Postmenopausal. Breast cancer, left, age 50. Previous DCIS pathology result. Previous chest radiation therapy at age 51. 10/30/2021, Lumpectomy on the Left side. 10/30/2021, Malignant US breast localization LT on the left side. 08/24/2021, Malignant Core Biopsy on the left side. Prior Study Comparison: 08/17/2021 Bilateral Diagnostic Ultrasound, [facility]. 08/17/2021 Bilateral Diagnostic Mammogram, [facility]. 08/24/2021 Left Diagnostic Mammogram, [facility]. 10/30/2021 Left MG diagnostic mammo LT wo CAD., [facility]. 05/20/2022 Left MG 3D diag mammo w/cad LT, [facility]. 05/20/2022 Left US breast limited LT, [facility]. Tissue Density: The breast tissue is heterogeneously dense. This may lower the sensitivity of mammography. Findings: Analyzed By CAD. Postsurgical and posttreatment changes left breast. Appearance is similar compared to 6 months prior. The right breast has decreased in overall size compatible with patient's interval weight loss. No persisting abnormality on 3-D images. No significant change from prior exams. Overall Assessment: Probably benign, BI-RAD 3 Management: Diagnostic Mammogram of the left breast in 6 months. Ongoing postsurgical follow-up of the left breast to assess for any evolving posttreatment change (total 1.5 year follow-up). Results were given to the patient verbally at the time of exam. Patient should continue monthly self-breast exams. A clinical breast exam by your physician is recommended on an annual basis. This exam should not preclude additional follow-up of suspicious palpable abnormalities. Electronically signed and approved by: Kenny Cordova M.D. Radiologist
== END | disposition home or self-care (01) ==
LOC: RADMAMWWP 08:43
PROVIDERS: ATTEND Surgery
DX: R92.2 Inconclusive mammogram (principal); Z78.0 Asymptomatic menopausal state; Z85.3 Personal history of malignant neoplasm of breast
CPT/HCPCS: 77062; 77066

== ENCOUNTER → 2023-05-26 | Outpatient (CLI) | payer OTHER ==
--- NOTE | 2023-05-26 09:46 | MM ---
Reason for Exam: Additional evaluation requested from abnormal screening. Last screening mammogram was performed 6 month(s) ago. Patient History: Menarche at age 8. Patient has no children. Left ovary removed at age 51. Right ovary removed at age 51. Hysterectomy at age 51. Postmenopausal. Breast cancer, left, age 50. Previous DCIS pathology result. Previous chest radiation therapy at age 51. 10/30/2021, Lumpectomy on the Left side. 10/30/2021, Malignant US breast localization LT on the left side. 08/24/2021, Malignant Core Biopsy on the left side. Prior Study Comparison: 08/17/2021 Bilateral Diagnostic Mammogram, [facility]. 08/24/2021 Left Diagnostic Mammogram, [facility]. 10/30/2021 Left MG diagnostic mammo LT wo CAD., [facility]. 05/20/2022 Left MG 3D diag mammo w/cad LT, [facility]. 11/19/2022 Bilateral MG 3D diag mammo w/cad JULIANNE, [facility]. Tissue Density: Left: The breast tissue is heterogeneously dense. This may lower the sensitivity of mammography. Findings: Analyzed By CAD. Left breast surgical clips. No new suspicious masses, calcifications or distortions. Overall Assessment: Benign, BI-RAD 2 Management: Screening Mammogram of both breasts in 6 months. Results were given to the patient verbally at the time of exam. Patient should continue monthly self-breast exams. A clinical breast exam by your physician is recommended on an annual basis. This exam should not preclude additional follow-up of suspicious palpable abnormalities. Note on Yoli scores and lifetime risk: 1. A Yoli score greater than 3% is considered moderate risk. If this is the case, consider specialist referral to assess eligibility for a risk reducing agent. 2. If overall lifetime risk for the development of breast cancer is 20% or higher, the patient may qualify for future screening with alternating mammogram and breast MRI. Electronically signed and approved by: Armani Garcia DO
== END | disposition home or self-care (01) ==
LOC: RADMAMWWP 09:09
PROVIDERS: ATTEND Surgery
DX: R92.332 Mammographic heterogeneous density, left breast (principal); Z78.0 Asymptomatic menopausal state; Z90.710 Acquired absence of both cervix and uterus
CPT/HCPCS: 77061; 77065

== ENCOUNTER 2023-05-30 07:22 | Day surgery (SDC) | payer OTHER ==
[2023-05-28 10:13] VITALS: BMI 19.5
[~2023-05-30 07:22] MED LIST changes: -DEXAMETHASONE SOD PHOSPHATE 4 MG/ML 1 ML VIAL IV ONE; -HEPARIN SODIUM,PORCINE/PF 5,000 UNIT/0.5 ML SYRINGE SQ PRN; -HYDROmorphone 0.5 MG/0.5 ML SYRINGE IVP PRN; +LACTATED RINGERS 1,000 ML IV SCH; -LIDOCAINE 1% (10MG/ML) FOR IV START INTRADERMA PRN; -METOCLOPRAMIDE 5 MG/ML 2 ML VIAL IVP PRN; -ONDANSETRON 4 MG/2 ML VIAL IVP ONE; -Pre Op ABX Message 1 EACH MISC MISCELLANE ONE; -SCOPOLAMINE 1 MG/72 HR PATCH TRANSDERM ONE
[2023-05-30] MEDS: LACTATED RINGERS 1,000 ML IV ONE ×2 (07:35→08:34)
[2023-05-30 07:57] VITALS: TEMP 97.9
[2023-05-30] MEDS ORDERED: PROPOFOL 10 MG/ML 20 ML VIAL IV ONE (08:35)
[2023-05-30] MEDS ORDERED: LIDOCAINE 1% INJ 10MG/ML (20 ML MDV) ONE (08:35)
--- NOTE | 2023-05-30 08:55 | P.PCN ---
Date of Procedure: 05/30/23 Procedure(s) Performed: BRIEF HISTORY: Patient is a 52-year-old pleasant white female scheduled for an elective colonoscopy as a part of screening for colon cancer. PROCEDURE PERFORMED: Colonoscopy. PREOPERATIVE DIAGNOSIS: Screening for colon cancer. IV sedation per Anesthesia. PROCEDURE: After informed consent was obtained, the patient, was brought into the endoscopy unit. IV sedation was administered by Anesthesia under continuous monitoring. Digital rectal examination was normal. Initially the Olympus CF-160 flexible video colonoscope was then inserted in the rectum, gradually advanced into the cecum without any difficulty. Careful examination was performed as the scope was gradually being withdrawn. Ileocecal valve and the appendiceal orifice were visualized and appeared normal. Prep was excellent. Mucosa of the cecum, ascending colon, transverse colon, descending colon, sigmoid colon, and rectum appeared normal. Retroflexion was performed in the rectum and no lesions were seen. The patient tolerated the procedure well. IMPRESSION: Normal-appearing colon from rectum to cecum with no evidence of colorectal neoplasia . RECOMMENDATIONS: Findings of this examination were discussed with the patient as well as a family. She was advised to have a repeat screening colonoscopy in 10 years..
[2023-05-30 09:31] VITALS: BP 102/64; PULSE 63; RESP 16
== END 2023-05-30 09:52 | disposition home or self-care (01) ==
LOC: ORWHC2ENDO 07:22
PROVIDERS: ATTEND Internal Medicine Gastroenterology
DX: Z12.11 Encounter for screening for malignant neoplasm of colon (principal); F41.9 Anxiety disorder, unspecified; Z90.710 Acquired absence of both cervix and uterus; Z98.890 Other specified postprocedural states; Z85.3 Personal history of malignant neoplasm of breast; Z88.0 Allergy status to penicillin
CPT/HCPCS: 45378; J2001; J2704

== ENCOUNTER → 2023-06-06 | Outpatient (CLI) | payer OTHER | LOC: WWCWWP 10:00 | PROVIDERS: ATTEND Surgery | DX: Z53.9 Procedure and treatment not carried out, unspecified reason (principal) ==

== ENCOUNTER → 2023-07-24 | Outpatient (CLI) | payer OTHER ==
--- NOTE | 2023-07-24 09:04 | P.PN ---
Subjective Progress Note Date: 07/24/23 Principal diagnosis: left breast invasive ductal cancer 2021, [id number]+Her2-G2 left breast Invasive ductal cancer 2021, [id number]+Pr+Her2- Stage I B left breast invasive ductal carcinoma The patient is a 52 year old white female seen initially in consultation for Dr Davis regarding a lump in her left breast. She was uncertain as to how long it had been present. She had a bilateral mammogram on 08-17-21 revealing an area of concern in the left breast. This was her first mammogram. She underwent an ultrasound core biopsy of the area of concern on 5621 which revealed an invasive differentiated ductal carcinoma grade 2 this was ER/MS positive and HER-2/herbert negative. Her case was presented at tumor board she underwent a genetic testing which was negative and an Oncotype evaluation with a recurrent score of 15. It was felt that neoadjuvant therapy was not necessary and underwent a lumpectomy with sentinel node biopsy on 10-30-21. Pathology reveled a 2.9 cm 1 of 4 nodes + invasive G2 ductal cancer. All margins were negative. Surgeon has lost 27 pounds since her surgery and at present weighs 104. Her BMI is 18.4. Post procedure she develped an infected seroma requiring IV AB therapy. oncotype 15 She decidec agaisnt chemotherapy and had zolodex and letrazole. she completed radiation therapy January 2022 03-28-22 hysterectomy and BSO, zolodex discontinued bilateral mammogram on 11-19-22 BIRAD 3 repeat left breast mammogram in 6 months; repeat left breast mammogram on 05-26-23 personally reviewed and BIRAD [address] Lujan 02-25-23 reviewed. At this time she has no complaints related to either breast. She has gained about 4 pounds since her last visit. She has changed her diet to total plant based. Caffeine: none nicotine: none chocolate: several times a week BCP: 25 years ago for 15 years hormones: none Family History: maternal grandfather: lung cancer Hormonal History: menarche: 8 G0 menopause: 52, TYE BSO BCP use for 15 years stopped 25 years ago Sugical History: TYE BSO left breast lumpectomy and SNB 2021 Medical History: anemia; HgB 8.8 on Friday checked yearly she did hte cologuard 2 years ago, she has not had a colonoscopy Social history: Nicotine: Negative Alcohol: Negative Drugs: Negative - Constitutional Constitutional: Reports sweats - EENT Eyes: denies blurred vision, denies pain Ears: deny: decreased hearing, tinnitus Ears, nose, mouth and throat: Denies headache, Denies sore throat - Breasts Breasts: bilateral: as per HPI - Cardiovascular Cardiovascular: Denies chest pain, Denies shortness of breath - Respiratory Respiratory: Denies cough - Gastrointestinal Gastrointestinal: Denies abdominal pain, Denies diarrhea, Denies nausea, Denies vomiting - Genitourinary (Female) Genitourinary: Denies dysuria, Denies hematuria - Menstruation Menstruation: Reports as per HPI - Musculoskeletal Musculoskeletal: Denies myalgias - Integumentary Integumentary: Denies pruritus, Denies rash - Neurological Neurological: Denies numbness, Denies weakness - Psychiatric Psychiatric: Denies anxiety, Denies depression - Endocrine Endocrine: Reports fatigue, Denies weight change - Hematologic/Lymphatic Comment: anemia related to heavy periods Hematologic/Lymphatic: Reports as per HPI - Allergic/Immunologic Allergic/Immunologic: Reports as per HPI Objective - Constitutional General appearance: Present: cooperative - EENT Eyes: Present: edentulous ENT: Present: hearing grossly normal - Neck Neck: Present: normal ROM - Respiratory Respiratory: bilateral: CTA - Cardiovascular Rhythm: regular Heart sounds: normal: S1, S2 - Gastrointestinal General gastrointestinal: Present: soft - Integumentary Integumentary: Present: normal turgor - Musculoskeletal Musculoskeletal: Present: gait normal - Psychiatric Psychiatric: Present: A&O x's 3, appropriate affect, intact judgment & insight - Additional findings Additional findings: Breast Exam: BRA: 34A Inspection: Healed scar left breast from prior surgery, bilateral grade 1/2 ptosis; just prominent anterior rib cage but no lesions of concern are noted in either breast Palpation: Right breast: Multi-positional exam no dominant masses or nodules of concern Right axilla: No adenopathy of concern, small shoddy adenopathy Left breast: Multi-positional exam post surgical and radiation changes no dominant masses or nodules of concern Left axilla: No adenopathy of concern Assessment and Plan Assessment: Impression: Patient status post left breast lumpectomy and radiation therapy for invasive ductal carcinoma T2 N1 G2 ER + Pr+ HER-2 (-), no evidence of any recurrent cancer Bilateral mammogram 8123 BIRAD 3, repeat left breast mammogram in 6 months; left breast mammogram on 05-26-23 BIRD 2 personally reviewed Plan: At this time the patient is doing well with no evidence of any recurrent cancer She is presently on letrozole and tolerating this without difficulty She has lost 27 pounds secondary to the fact that she does not want any estrogen formed in her body and she does not want any fat tissue to form estrogen. She has had a TYE/BSO in March 2022, secondary to bleeding and anemia. bilateral mammogram and bilateral breast ultrasound secondary to dense breast in November 2023 with appointment at that time CC: Dr. Davis, Dr. Lujan
[2023-07-24 09:38] VITALS: BP 118/69; PULSE 68; RESP 17; TEMP 98.1
== END ==
LOC: WWCWWP 08:30
PROVIDERS: ATTEND Surgery
DX: C50.912 Malignant neoplasm of unspecified site of left female breast (principal); R92.8 Other abnormal and inconclusive findings on diagnostic imaging of breast; R92.322 Mammographic fibroglandular density, left breast; R92.321 Mammographic fibroglandular density, right breast; D64.9 Anemia, unspecified; Z17.0 Estrogen receptor positive status [ER+]; Z92.3 Personal history of irradiation; Z88.0 Allergy status to penicillin

== ENCOUNTER → 2023-12-26 | Outpatient (CLI) | payer OTHER ==
--- NOTE | 2023-12-26 10:35 | MM ---
Reason for Exam: Hx of breast cancer, conservation therapy. Last mammogram was performed 1 year(s) and 1 month(s) ago. Patient History: Menarche at age 8. Patient has no children. Left ovary removed at age 51. Right ovary removed at age 51. Hysterectomy at age 51. Postmenopausal. Breast cancer, left, age 50. Previous DCIS pathology result. Previous chest radiation therapy at age 51. 10/30/2021, Lumpectomy on the Left side. 10/30/2021, Malignant US breast localization LT on the left side. 08/24/2021, Malignant Core Biopsy on the left side. Prior Study Comparison: 08/24/2021 Left Diagnostic Mammogram, [facility]. 05/20/2022 Left MG 3D diag mammo w/cad LT, [facility]. 11/19/2022 Bilateral MG 3D diag mammo w/cad JULIANNE, [facility]. 05/26/2023 Left MG 3D diag mammo w/cad LT, [facility]. Tissue Density: The breasts are heterogeneously dense, which may obscure small masses. Findings: Analyzed By CAD. Postsurgical and posttreatment changes left breast redemonstrated. No significant change from prior exam. Overall Assessment: Incomplete: need additional imaging evaluation, BI-RAD 0 Management: Diagnostic Breast Ultrasound of both breasts. Electronically signed and approved by: Kenny Cordova M.D. Radiologist
--- NOTE | 2023-12-26 10:36 | USB ---
Reason for Exam: Additional evaluation requested from abnormal screening. Patient History: Menarche at age 8. Patient has no children. Left ovary removed at age 51. Right ovary removed at age 51. Hysterectomy at age 51. Postmenopausal. Breast cancer, left, age 50. Previous DCIS pathology result. Previous chest radiation therapy at age 51. 10/30/2021, Lumpectomy on the Left side. 10/30/2021, Malignant US breast localization LT on the left side. 08/24/2021, Malignant Core Biopsy on the left side. Technique: Method: Whole Breast Handheld. Prior Study Comparison: 05/20/2022 Left MG 3D diag mammo w/cad LT, [facility]. 11/19/2022 Bilateral MG 3D diag mammo w/cad JULIANNE, [facility]. 05/26/2023 Left MG 3D diag mammo w/cad LT, [facility]. Findings: The whole breast of both breasts, the axilla of both breasts and the retroareolar of both breasts were scanned. A complete US of all four quadrants of both breasts, axilla, and retro-areolar region were reviewed. Right: Dense tissue is present throughout. No solid or cystic lesion. A prominent but nonenlarged and non thickened lymph node noted in the right axilla. Left: Dense tissue is present throughout. At the 11:00 position, 1 cm from the nipple, there is a heterogeneous hypoechoic area measuring 8 x 9 x 5 mm. Unclear if this represents focal scar tissue, a prominent intramammary lymph node, or other lesion. Further tissue sampling is recommended. No other solid or cystic lesions or axillary lymphadenopathy. Overall Assessment: Suspicious, BI-RAD 4 Management: Ultrasound-Guided Core Biopsy of the left breast. Results were given to the patient verbally at the time of exam. Electronically signed and approved by: Kenny Cordova M.D. Radiologist
== END | disposition home or self-care (01) ==
LOC: RADMAMWWP 07:23
PROVIDERS: ATTEND Surgery
DX: R92.8 Other abnormal and inconclusive findings on diagnostic imaging of breast (principal); Z85.3 Personal history of malignant neoplasm of breast; Z90.722 Acquired absence of ovaries, bilateral; R92.333 Mammographic heterogeneous density, bilateral breasts
CPT/HCPCS: 77062; 77066

== ENCOUNTER → 2024-01-06 | Day surgery (SDC) | payer OTHER ==
--- NOTE | 2024-01-06 16:09 | MM ---
Reason for Exam: Post Procedure Mammogram. Last screening mammogram was performed less than 1 month ago. Patient History: Menarche at age 8. Patient has no children. Left ovary removed at age 51. Right ovary removed at age 51. Hysterectomy at age 51. Postmenopausal. Breast cancer, left, age 50. Previous DCIS pathology result. Previous chest radiation therapy at age 51. 10/30/2021, Lumpectomy on the Left side. 10/30/2021, Malignant US breast localization LT on the left side. 08/24/2021, Malignant Core Biopsy on the left side. Prior Study Comparison: 08/17/2021 Bilateral Diagnostic Ultrasound, [facility]. 08/17/2021 Bilateral Diagnostic Mammogram, [facility]. 08/24/2021 Left Diagnostic Mammogram, [facility]. 10/30/2021 Left MG diagnostic mammo LT wo CAD., [facility]. 05/20/2022 Left MG 3D diag mammo w/cad LT, [facility]. 05/20/2022 Left US breast limited LT, [facility]. 11/19/2022 Bilateral MG 3D diag mammo w/cad JULIANNE, [facility]. 05/26/2023 Left MG 3D diag mammo w/cad LT, [facility]. 12/26/2023 Bilateral MG 3D diag mammo w/cad JULIANNE, [facility]. 12/26/2023 Bilateral US breast BILAT, [facility]. Tissue Density: Left: The breasts are extremely dense, which lowers the sensitivity of mammography. Findings: Pattern appears stable. Surgical clips are present within the left breast. No significant interval changes are evident. No suspicious groups of microcalcifications, spiculated or lobular masses, architectural distortion or other secondary signs of malignancy are mammographically apparent. Overall Assessment: Benign, BI-RAD 2 Management: Diagnostic Mammogram of both breasts in 1 year. A negative mammogram report should not preclude additional follow up of suspicious palpable abnormalities. Patient should continue monthly self breast exam. A clinical breast exam by your physician is recommended on an annual basis and results should be correlated with mammographic findings. Note on Yoli scores and lifetime risk: 1. A Yoli score greater than 3% is considered moderate risk. If this is the case, consider specialist referral to assess eligibility for a risk reducing agent. 2. If overall lifetime risk for the development of breast cancer is 20% or higher, the patient may qualify for future screening with alternating mammogram and breast MRI. [facility], , 01/06/2024 4:06 PM. Electronically signed and approved by: Ravindra Keating D.O. Radiologis
--- NOTE | 2024-01-12 11:07 | USB ---
Prior Study Comparison: 11/19/2022 Bilateral MG 3D diag mammo w/cad JULIANNE, [facility]. 05/26/2023 Left MG 3D diag mammo w/cad LT, [facility]. 12/26/2023 Bilateral MG 3D diag mammo w/cad JULIANNE, [facility]. Pathology Description: Location: 11 o'clock. Approach: Lateral to Medial Needle Type: Mammotome Cores: 4 Skin Nicks: 1 Gauge: 13 Lesion Excised: 90% Complications: Hematoma requiring intervention Extended held pressure The procedure of ultrasound guided core biopsy was explained to the patient. Benefits, alternatives, and risks were discussed. An informed consent was then obtained. A timeout was performed. The patient was placed in supine positioning for imaging and for the procedure. The overlying skin was prepped and draped in usual sterile fashion. Lidocaine was used as anesthetic into the skin and subcutaneous tissue up to area of concern in the breast. A small skin leeann was made with surgical scalpel. Under ultrasound guidance, a 12-gauge vacuum assisted biopsy gun device was used to obtain 4 core samples. A biopsy clip was left in lesion. Hydromark coil core marker was placed. The patient tolerated the procedure well without any immediate complication. The patient was kept in the radiology department for short stay after the procedure and then discharged home in stable condition. Postprocedure mammogram: The patient was transferred to mammography for physician ordered post procedure mammogram for clip placement verification. Impression: Successful ultrasound guided core biopsy of area of concern in the left breast, full pathology results to follow. Recommendations: 1. Recommendations are pending pathology results. [facility], , 01/06/2024 2:02 PM. Pathology Results: Result: Benign. LEFT BREAST, ELEVEN O'CLOCK 1 CM FROM NIPPLE, ULTRASOUND GUIDED NEEDLE CORE BIOPSY: Sclerotic fibrous scar with chronic inflammation, histiocytosis and focal multinucleated histiocytic reaction compatible with prior procedure related changes (see note). Current specimen negative for diagnostic malignancy. Notes The patient's stated clinical history of left breast carcinoma, status post left lumpectomy in 2021 along with a history of chest radiation is noted. Careful examination reveals no diagnostic evidence of malignancy within the current specimen. Overall Assessment: Benign Management: Diagnostic Mammogram of the left breast in 6 months. Electronically signed and approved by: Ravindra Keating D.O. Radiologis
== END ==
LOC: RADUSWWP 12:40
PROVIDERS: ATTEND Surgery
DX: L90.5 Scar conditions and fibrosis of skin (principal); N61.0 Mastitis without abscess; R92.8 Other abnormal and inconclusive findings on diagnostic imaging of breast; Z78.0 Asymptomatic menopausal state; Z90.721 Acquired absence of ovaries, unilateral; Z85.3 Personal history of malignant neoplasm of breast
CPT/HCPCS: 77065; 88305

== ENCOUNTER → 2024-01-16 | Outpatient (CLI) | payer OTHER ==
[2024-01-16 10:18] VITALS: BP 119/74; PULSE 82; RESP 17; TEMP 98.2
--- NOTE | 2024-01-16 10:36 | P.PN ---
Subjective Progress Note Date: 01/16/24 Principal diagnosis: left breast stage IB 202107/24/23 Principal diagnosis: left breast invasive ductal cancer 2021, [id number]+Pr+Her2-G2 stage IB The patient is a 52 year old white female seen initially in consultation for Dr Davis regarding a lump in her left breast. She was uncertain as to how long it had been present. She had a bilateral mammogram on 08-17-21 revealing an area of concern in the left breast. This was her first mammogram. She underwent an ultrasound core biopsy of the area of concern on 5621 which revealed an invasive differentiated ductal carcinoma grade 2 this was ER/NY positive and HER-2/herbert negative. Her case was presented at tumor board she underwent a genetic testing which was negative and an Oncotype evaluation with a recurrent score of 15. It was felt that neoadjuvant therapy was not necessary and underwent a lumpectomy with sentinel node biopsy on 10-30-21. Pathology reveled a 2.9 cm 1 of 4 nodes + invasive G2 ductal cancer. All margins were negative. Surgeon has lost 27 pounds since her surgery and at present weighs 104. Her BMI is 18.4. Post procedure she develped an infected seroma requiring IV AB therapy. oncotype 15 She decidec agaisnt chemotherapy and had zolodex and letrazole. she completed radiation therapy January 2022 03-28-22 hysterectomy and BSO, zolodex discontinued bilateral mammogram on 11-19-22 BIRAD 3 repeat left breast mammogram in 6 months; repeat left breast mammogram on 05-26-23 personally reviewed and BIRAD [address] Lujan 02-25-23 reviewed. At this time she has no complaints related to either breast. She has gained about 4 pounds since her last visit. She has changed her diet to total plant based. 01-16-24l Vanessa is a 53 year old diagnosed with a stage IB left breast invasive ductal cancer in 2021. lumpectomy and SNB on 10-30-21 completed radiation in January 2022 no chemptherapy treated now on letrazole Bilateral mammogram on 12-26-23 then had a bilateral breast ultrasound on 12-26-23 which led to a left breast ultrasund core biopsy on 01-07-24 which was benign concordant recommendation for a left breast mammogram in [address] Lujan 12-26-23 reviewed continue letrazle, calcium, and vitamin D She does not feel any lumps masses or nodules of concern in either breast, she does have some echymosis at the site of the recent left breast biopsy. Caffeine: none nicotine: none chocolate: several times a week BCP: 25 years ago for 15 years hormones: none Family History: maternal grandfather: lung cancer Hormonal History: menarche: 8 G0 menopause: 52, TYE BSO BCP use for 15 years stopped 25 years ago Sugical History: TYE BSO left breast lumpectomy and SNB 2021 Medical History: anemia; HgB 8.8 on Friday checked yearly she did hte cologuard 2 years ago, she has not had a colonoscopy Social history: Nicotine: Negative Alcohol: Negative Drugs: Negative - Constitutional Constitutional: Reports sweats - EENT Eyes: denies blurred vision, denies pain Ears: deny: decreased hearing, tinnitus Ears, nose, mouth and throat: Denies headache, Denies sore throat - Breasts Breasts: bilateral: as per HPI - Cardiovascular Cardiovascular: Denies chest pain, Denies shortness of breath - Respiratory Respiratory: Denies cough - Gastrointestinal Gastrointestinal: Denies abdominal pain, Denies diarrhea, Denies nausea, Denies vomiting - Genitourinary (Female) Genitourinary: Denies dysuria, Denies hematuria - Menstruation Menstruation: Reports as per HPI - Musculoskeletal Musculoskeletal: Denies myalgias - Integumentary Integumentary: Denies pruritus, Denies rash - Neurological Neurological: Denies numbness, Denies weakness - Psychiatric Psychiatric: Denies anxiety, Denies depression - Endocrine Endocrine: Reports fatigue, Denies weight change - Hematologic/Lymphatic Comment: anemia related to heavy periods Hematologic/Lymphatic: Reports as per HPI - Allergic/Immunologic Allergic/Immunologic: Reports as per HPI Objective - Vital Signs Vital signs: Vital Signs Temp 98.2 F 01/16/24 10:15 Pulse 82 01/16/24 10:15 Resp 17 01/16/24 10:15 BP 119/74 01/16/24 10:15 Pulse Ox 97 01/16/24 10:15 FiO2 Intake & Output 01/15/24 01/16/24 01/16/24 18:59 06:59 18:59 Weight 49.895 kg - Constitutional General appearance: Present: cooperative - EENT Eyes: Present: EOMI ENT: Present: hearing grossly normal - Neck Neck: Present: normal ROM - Respiratory Respiratory: bilateral: CTA - Cardiovascular Rhythm: regular Heart sounds: normal: S1, S2 - Integumentary Integumentary: Present: normal turgor - Musculoskeletal Musculoskeletal: Present: gait normal - Psychiatric Psychiatric: Present: A&O x's 3, appropriate affect, intact judgment & insight - Additional findings Additional findings: Breast Exam: BRA: 34A Inspection: Healed scar left breast from prior surgery, bilateral grade 1/2 ptosis; just prominent anterior rib cage but no lesions of concern are noted in either breast Palpation: Right breast: Multi-positional exam no dominant masses or nodules of concern Right axilla: No adenopathy of concern, small shoddy adenopathy Left breast: Multi-positional exam post surgical and radiation changes no dominant masses or nodules of concern; mild ecchymosis at site of recent biopsy well-healed scar from prior surgery Left axilla: No adenopathy of concern Assessment and Plan Assessment: Impression: Patient status post left breast lumpectomy and radiation therapy for invasive ductal carcinoma T2 N1 G2 ER + Pr+ HER-2 (-), no evidence of any recurrent cancer status post left breast core biopsy of the left breast on 01-07-24 Benign concordant Plan: At this time the patient is doing well with no evidence of any recurrent cancer She is presently on letrozole and tolerating this without difficulty She has lost 27 pounds secondary to the fact that she does not want any estrogen formed in her body and she does not want any fat tissue to form estrogen. She has had a TYE/BSO in March 2022, secondary to bleeding and anemia. repeat left breast mammogram in 6 months with appointment at that time Bilateral mammogram and ultrasound in December 2024 CC: Dr. Davis, Dr. Lujan
== END ==
LOC: WWCWWP 09:03
PROVIDERS: ATTEND Surgery
DX: Z48.817 Encounter for surgical aftercare following surgery on the skin and subcutaneous tissue (principal); Z92.3 Personal history of irradiation; Z85.3 Personal history of malignant neoplasm of breast; Z88.0 Allergy status to penicillin

== ENCOUNTER → 2024-06-28 | Outpatient (CLI) | payer BC, OTHER ==
--- NOTE | 2024-06-28 08:49 | BD ---
EXAMINATION TYPE: Axial Bone Density DATE OF EXAM: 06/28/2024 CLINICAL HISTORY: 53 years old Female. ICD-10 CODE: Z78.0 MENOPAUSAL STATE , Additional History: Height: 63" Weight: 115lbs FRAX RISK QUESTIONS: Alcohol (3 or more units per day): No Family History (Parent hip fracture): No Glucocorticoids (More than 3mos): No (Ex: prednisone, prednisolone, methylprednisolone, dexamethasone, and hydrocortisone). History of Fracture in Adulthood: No Secondary Osteoporosis: 1. Type 1 Diabetes: No 2. Hyperthyroidism: No 3. Menopause before 45: No 4. Malnutrition: No 5. Chronic liver disease: No Rheumatoid Arthritis: No Current Tobacco Use: No RISK FACTORS HISTORY OF: Hip Fracture (Right/Left): No Spine Fracture: No History of Wrist Fracture: No Surgery to Spine/Hip(right/left)/Wrist (right/left): No MEDICATIONS: Patient takes Letrazol for hx of breast cancer Thyroid Medications:No Osteoporosis Medications: No EXAM MEASUREMENTS: Bone mineral densitometry was performed using the Save[employer] System. Bone mineral density as measured about the Lumbar spine is: ----- L1-L4(G/cm2): 1.151 T Score Values are as follows: ----- L1: -1.3 ----- L2: -0.9 ----- L3: 0.4 ----- L4: 0.4 ----- L1-L4: -0.2 Z Score Values are as follows: ----- L1: 0.0 ----- L2: 0.4 ----- L3: 1.6 ----- L4: 1.6 ----- L1-L4: 1.0 Bone mineral density has: decreased -8.5% since study of: 05/01/2022 Bone mineral density about the R hip (g/cm2): 0.816 Bone mineral density about the L hip (g/cm2): 0.884 T Score values are as follows: -----R Neck: -1.5 -----L Neck: -1.2 -----R Total: -1.5 -----L Total: -1.0 Z Score values are as follows: -----R Neck: -0.2 -----L Neck: 0.1 -----R Total: -0.5 -----L Total: 0.0 Bone mineral density has: decreased -10.6% since study of: 05/01/2022 FRAX%s: The graph provided illustrates a 6.1% chance for a major osteoporotic fx and a 0.5% chance fo r the hips probability for fx in 10 years time. IMPRESSION: Osteopenia (T Score between -2.5 and -1). There is slightly increased risk of fracture and the patient may be considered for treatment. Re-Screen 2-5 years. NOTE: T-SCORE=SD OF THE YOUNG ADULT MEAN. [facility], , 06/28/2024 8:46 AM
== END | disposition home or self-care (01) ==
LOC: RADBDWWP 06:54
PROVIDERS: ATTEND Family Medicine
DX: M85.89 Other specified disorders of bone density and structure, multiple sites (principal); Z13.820 Encounter for screening for osteoporosis; Z78.0 Asymptomatic menopausal state
CPT/HCPCS: 77080

== ENCOUNTER → 2024-07-13 | Outpatient (CLI) | payer BC ==
--- NOTE | 2024-07-13 09:47 | MM ---
Reason for Exam: Follow-up at short interval from prior study. Last screening mammogram was performed 6 month(s) ago. Patient History: Menarche at age 8. Patient has no children. Left ovary removed at age 51. Right ovary removed at age 51. Hysterectomy at age 51. Postmenopausal. Breast cancer, left, age 50. Previous DCIS pathology result. Previous chest radiation therapy at age 51. 01/06/2024, Benign US biopsy breast VAD LT on the left side. 10/30/2021, Lumpectomy on the Left side. 10/30/2021, Malignant US breast localization LT on the left side. 08/24/2021, Malignant Core Biopsy on the left side. Prior Study Comparison: 05/26/2023 Left MG 3D diag mammo w/cad LT, [facility]. 12/26/2023 Bilateral MG 3D diag mammo w/cad JULIANNE, [facility]. 01/06/2024 Left MG diagnostic mammo LT wo CAD., [facility]. Tissue Density: Left: The breasts are heterogeneously dense, which may obscure small masses. Findings: Analyzed By CAD. Postsurgical changes are stable within the left breast. No new suspicious mass. No new grouped calcifications. Punctate benign-appearing calcification. Overall Assessment: Probably benign, BI-RAD 3 Management: Diagnostic Mammogram of both breasts in 6 months. . Results were given to the patient verbally at the time of exam. Patient should continue monthly self-breast exams. A clinical breast exam by your physician is recommended on an annual basis. This exam should not preclude additional follow-up of suspicious palpable abnormalities. Note on Yoli scores and lifetime risk: 1. A Yoli score greater than 3% is considered moderate risk. If this is the case, consider specialist referral to assess eligibility for a risk reducing agent. 2. If overall lifetime risk for the development of breast cancer is 20% or higher, the patient may qualify for future screening with alternating mammogram and breast MRI. [facility], , 07/13/2024 9:44 AM. Electronically signed and approved by: De Otero M.D. Radiologis
== END | disposition home or self-care (01) ==
LOC: RADMAMWWP 09:08
PROVIDERS: ATTEND Surgery
DX: R92.322 Mammographic fibroglandular density, left breast (principal); Z85.3 Personal history of malignant neoplasm of breast; Z78.0 Asymptomatic menopausal state
CPT/HCPCS: 77061; 77065

== ENCOUNTER → 2024-07-23 | Outpatient (CLI) | payer BC ==
--- NOTE | 2024-07-23 20:14 | CT ---
EXAMINATION TYPE: CT abdomen w con DATE OF EXAM: 07/23/2024 5:51 PM COMPARISON: None. CLINICAL INDICATION: Female, 53 years old with history of K85.90 ACUTE PANCREATITIS WITHOUT NECROSIS OR INFE, Abdominal pain x4 weeks. Acute pancreatitis TECHNIQUE: Axial images were obtained from above the diaphragm to the pubic rami in the axial plane a t 5 mm thick sections. Reconstructed images are reviewed on the computer in the coronal plane. CONTRAST: 100ml mL of Isovue 300. Study performed with Oral Contrast DLP: 332.5 mGycm, Automated exposure control for dose reduction was used. FINDINGS: Limited CT sections are obtained the lung bases. The lung bases are clear. CT ABDOMEN: Liver: Normal Spleen: Normal Pancreas: Normal. No suspicious inflammatory changes are identified adjacent. No pseudocyst formation or fluid collections are evident. No suspicious pancreatic duct dilatation. Correlate with the labor atory results. Adrenal glands: The adrenal glands are normal. Gallbladder: Normal Kidneys: No masses are evident. No hydronephrosis is present. No cysts are present. Delayed images were obtained through the kidneys, which remain unremarkable. Aorta: Vascular calcification is within the aorta. Inferior vena cava: Normal. Loops of bowel within the abdomen and upper pelvis are normal. Moderate fecal retention is present There are loops of bowel which are incompletely distended or lack oral contrast limiting their evalu ation. IMPRESSION: 1. No suspicious radiographic changes to suggest acute pancreatitis. [facility], , 07/23/2024 8:11 PM
== END | disposition home or self-care (01) ==
LOC: RADCTMAIN 16:22
PROVIDERS: ATTEND Family Medicine
DX: K85.90 Acute pancreatitis without necrosis or infection, unspecified (principal)
CPT/HCPCS: 74160; Q9967

== ENCOUNTER → 2024-07-28 | Outpatient (CLI) | payer BC ==
[2024-07-28 11:58] VITALS: BP 126/71; PULSE 83; RESP 17; TEMP 98.1
--- NOTE | 2024-07-28 12:24 | P.PN ---
Subjective Progress Note Date: 07/28/24 Principal diagnosis: left breast invasive ductal cancer 2021, [id number]+Pr+Her2-G2 stage IB 07-28-24 Principal diagnosis: left breast stage IB 2021 Principal diagnosis: left breast invasive ductal cancer 2021, [id number]+Pr+Her2-G2 stage IB The patient is a 53 year old white female seen initially in consultation for Dr Davis regarding a lump in her left breast. She was uncertain as to how long it had been present. She had a bilateral mammogram on 08-17-21 revealing an area of concern in the left breast. This was her first mammogram. She underwent an ultrasound core biopsy of the area of concern on 5621 which revealed an invasive differentiated ductal carcinoma grade 2 this was ER/WY positive and HER-2/herbert negative. Her case was presented at tumor board she underwent a genetic testing which was negative and an Oncotype evaluation with a recurrent score of 15. It was felt that neoadjuvant therapy was not necessary and underwent a lumpectomy with sentinel node biopsy on 10-30-21. Pathology reveled a 2.9 cm 1 of 4 nodes + invasive G2 ductal cancer. All margins were negative. Patient lost weight since surgery. Her BMI is 19.7 Post procedure she develped an infected seroma requiring IV AB therapy. oncotype 15 She decided against chemotherapy and had zolodex and letrazole. she completed radiation therapy January 2022 03-28-22 hysterectomy and BSO, zolodex discontinued bilateral mammogram on 11-19-22 BIRAD 3 repeat left breast mammogram in 6 months; repeat left breast mammogram on 05-26-23 personally reviewed and BIRAD [address] Lujan 02-23-24 reviewed, continue letrazole, calcium and vitamin D At this time she has no complaints related to either breast. She has gained about 4 pounds since her last visit. She has changed her diet to total plant based. Bilateral mammogram 12-26-2023 which led to a repeat left breast mammogram 07-13-24 BIRAD 3; repeat bilateral mammogram in December 2024; personally reviewed She does not feel any lumps masses or nodules of concern in either breast She is complaining of pain in midepigastruim and ? pancreatitis, she changed her diet and is feeling better Caffeine: none nicotine: none chocolate: several times a week BCP: 25 years ago for 15 years hormones: none Family History: maternal grandfather: lung cancer Hormonal History: menarche: 8 G0 menopause: 52, TYE BSO BCP use for 15 years stopped 25 years ago Sugical History: TYE BSO left breast lumpectomy and SNB 2021 Medical History: anemia; HgB 8.8 on Friday checked yearly she did hte cologuard 2 years ago, she has not had a colonoscopy Social history: Nicotine: Negative Alcohol: Negative Drugs: Negative - Constitutional Constitutional: Reports sweats - EENT Eyes: denies blurred vision, denies pain Ears: deny: decreased hearing, tinnitus Ears, nose, mouth and throat: Denies headache, Denies sore throat - Breasts Breasts: bilateral: as per HPI - Cardiovascular Cardiovascular: Denies chest pain, Denies shortness of breath - Respiratory Respiratory: Denies cough - Gastrointestinal Gastrointestinal: Denies abdominal pain, Denies diarrhea, Denies nausea, Denies vomiting - Genitourinary (Female) Genitourinary: Denies dysuria, Denies hematuria - Menstruation Menstruation: Reports as per HPI - Musculoskeletal Musculoskeletal: Denies myalgias - Integumentary Integumentary: Denies pruritus, Denies rash - Neurological Neurological: Denies numbness, Denies weakness - Psychiatric Psychiatric: Denies anxiety, Denies depression - Endocrine Endocrine: Reports fatigue, Denies weight change - Hematologic/Lymphatic Comment: anemia related to heavy periods Hematologic/Lymphatic: Reports as per HPI - Allergic/Immunologic Allergic/Immunologic: Reports as per HPI Objective - Vital Signs Vital signs: Vital Signs Temp 98.1 F 07/28/24 11:56 Pulse 83 07/28/24 11:56 Resp 17 07/28/24 11:56 BP 126/71 07/28/24 11:56 Pulse Ox 97 07/28/24 11:56 FiO2 Intake & Output 07/27/24 07/28/24 07/28/24 18:59 06:59 18:59 Weight 50.349 kg - Constitutional General appearance: Present: cooperative - EENT Eyes: Present: EOMI ENT: Present: hearing grossly normal - Neck Neck: Present: normal ROM - Respiratory Respiratory: bilateral: CTA - Cardiovascular Rhythm: regular Heart sounds: normal: S1, S2 - Integumentary Integumentary: Present: normal turgor - Musculoskeletal Musculoskeletal: Present: gait normal - Psychiatric Psychiatric: Present: A&O x's 3, appropriate affect, intact judgment & insight - Additional findings Additional findings: Breast Exam: BRA: 34A Inspection: Healed scar left breast from prior surgery, bilateral grade 1/2 ptosis; assymetry of breast related to surgery Palpation: Right breast: Multi-positional exam no dominant masses or nodules of concern Right axilla: No adenopathy of concern, small shoddy adenopathy Left breast: Multi-positional exam post surgical and radiation changes no dominant masses or nodules of concern; Left axilla: No adenopathy of concern Assessment and Plan Assessment: Impression: Patient status post left breast lumpectomy and radiation therapy for invasive ductal carcinoma T2 N1 G2 ER + Pr+ HER-2 (-), no evidence of any recurrent cancer status post left breast core biopsy of the left breast on 01-07-24 Benign concordant Mammogram from 12-26-2023 which led to a repeat left breast mammogram on 07 13 24 the plan is for a bilateral mammogram in December 2024 Plan: At this time the patient is doing well with no evidence of any recurrent cancer She is presently on letrozole and tolerating this with some complaints related to muscle aches and pains Bilateral mammogram and ultrasound in December 2024 with appointment at that time CC: Dr. Davis, Dr. Lujan Additional CC's: Michael Lujan
== END ==
LOC: WWCWWP 11:06
PROVIDERS: ATTEND Surgery
DX: Z12.31 Encounter for screening mammogram for malignant neoplasm of breast (principal); C50.912 Malignant neoplasm of unspecified site of left female breast; Z88.0 Allergy status to penicillin